=== PATIENT | male | born 1945 | race Caucasian/White ===

== ENCOUNTER 2022-03-08 15:30 | Outpatient (RCR) | payer MEDICARE, SELFPAY ==
--- NOTE | 2022-01-07 15:24 | PTOPEVAL ---
PHYSICAL THERAPY INITIAL EVALUATION. Thank you for referring Antonio Meléndez to [facility].? The patient is scheduled to be seen for therapy? 2x/week for 4 weeks. Please review, sign, date and return this plan of care MAXIMO. I agree with and certify that the following plan of care is medically necessary. Referring Physician Date Attending Provider: PHYSICIAN NOT ON STAFF *PT Outpatient Evaluation Start: 01/07/22 Evaluation Information Subjective Information Pt states he is having Query Text:As Reported By Patient/ bilateral lower back pain. He Family states when he gets up in the morning he uses pain medication (Alive, ibuprofen) and Biofreeze to help him get moving. He states he likes to golf but before he does he has to put a Biofreeze patch on. His PCP gave him a muscle relaxers yesterday to trial and it gave him acid reflux at night. He also complains of hand pain for last year or so. Pt states he and his used to walk 2-3 miles most days of the week, but have been unable to do this for the last year or so. Pain Assessment Bilateral Lower Back Reported Pain Level 5 Pain Description Throbbing Pain Frequency Chronic Lowest Pain Intensity 3 Greatest Pain Intensity 8 Other Pain Aggravating Factors Progressive throughout the day Cervical and Lumbar ROM Lumbar Flexion Active Mid More Lumbar Extension (0-40) 30 Lateral Flexion can reach knee joint line Query Text:Active Hands to: bilaterally, sharp pain with first attempt at L lateral flexion Lateral Rotation Right (0-45) 45 Lateral Rotation Left (0-45) 45 Lumbar ROM 75% of Normal Normal Lumbar Segmental Motion Yes Lower Extremity Range of Motion General Lower Extremity Range of Motion WFL/Left,WFL/Right Lower Extremity Muscle Strength Testing Gross Lower Extremity Strength B LE grossly 5/5 Posture Standing Position Posture Evaluation View Posterior Thoracic Spine Posture Flattened Lumbar Spine Posture Rotation Right,Increased Lordosis Palpation Assessment Palpation Tender to palpation a B paraspinal Balance Assessment 5 Time Sit to Stand Time in Seconds
--- NOTE | 2022-02-03 13:18 | PTOPEVAL ---
PHYSICAL THERAPY PROGRESS REPORT. Thank you for referring Antonio Meléndez to [facility].? The patient is scheduled to continue for therapy?2x/week for 4 weeks. Please review, sign, date and return this plan of care MAXIMO. I agree with and certify that the following plan of care is medically necessary. Referring Physician Date Attending Provider: PHYSICIAN NOT ON STAFF Evaluation Information Diagnosis low back pain Subjective Information Pt states his back pain is Query Text:As Reported By Patient/ starting to improve. He is Family experiencing less pain and his mobility has improved a little bit. He states he has not attempted to golf yet and is a little apprehensive about that. Pain Assessment Self Report Pain Assessment Bilateral Lower Back Reported Pain Level 3 Greatest Pain Intensity 6 Cervical and Lumbar ROM Lumbar Flexion Active Ankle Lumbar Extension (0-40) 30 Lateral Flexion can reach knee joint line Query Text:Active Hands to: bilaterally, achy pain with B lateral flexion Lateral Rotation Right (0-45) 45 Lateral Rotation Left (0-45) 45 Lumbar ROM 75% of Normal Normal Lumbar Segmental Motion Yes Balance Assessment Time Up Go (TUG) Timed Up and Go Test (TUG) (Seconds) 10 5 Time Sit to Stand Time in Seconds 13 5 Time Sit to Stand Comments Initially: 22s without the use Query Text:Normative Data: If Greater of UEs Than 15 Seconds, 74% Increase Risk for Recurrent Falls Gait Assessment Gait Pattern No Deviations/Normal Other Gait Observations Decreased trunk rotation, increased pelvic rotation. Equal step length and stride length 2 Minute Walk Total Distance Walked (feet) 440 2 Minute Walk Gait Speed Score (feet/ 3.66 second) 2 Minute Walk Test Comments No increase in back pain PT Clinical Summary Antonio presents to therapy today for his progress report following 8 sessions of therapy to treat his chronic low back pain. He has improved his lumbar mobility, LE strength, and functional mobility. He reports decreases in pain reports compared to the initial visit. He continues to demonstrate
--- NOTE | 2022-03-08 16:33 | PCPTNOTE ---
Attending Provider: PHYSICIAN NOT ON STAFF Patient:Antonio Meléndez Date of :1945 Pt states he has been doing well in the last month since his visit. He has been doing his exercises almost daily. He was able to golf 17 holes before his back pain started. He reports he has started to do some walking for exercise but his knee is a limiting factor in this. Vince is progress well with his HEP. He reports no functional limitations at this time. He is to be discharged from skilled physical therapy services at this time with instructions to follow up with his referring provider if any new symptoms occur. Patient?s initial visit was on 01/07/2022 14:15 and he had a total of 10 visits. The goals have been met. Thank you for referring this patient to [facility]. Please review, sign, date and return this discharge summary MAXIMO. I have been updated about the patient's current status and I agree with discharge from the above service at this time. Referring Physician Date
== END 2022-03-10 08:42 | disposition home or self-care (01) ==
LOC: ANHPT 15:30
DX: M54.50 Low back pain, unspecified (principal); G89.29 Other chronic pain
CPT/HCPCS: 97014; 97110; 97112; 97140; 97161; 97530; G0283

== ENCOUNTER 2025-06-20 08:15 | Outpatient (CLI) | payer MEDICARE, SELFPAY ==
--- NOTE | 2025-06-20 08:18 | ECG_ITS ---
Test Date: 2025-06-20 08:25:56 Measurements Intervals [place] Rate: 81 P: 60 DE: 287 QRS: -14 QRSD: 84 T: 2 QT: 330 QTc: 385 Interpretive Statements SINUS RHYTHM WITH FIRST DEGREE AV BLOCK LEFT VENTRICULAR HYPERTROPHY WITH ST-T CHANGE CANNOT R/O SEPTAL INFARCT, AGE INDETERMINATE BORDERLINE T WAVE ABNORMALITY- INFERIOR LEADS BASELINE ARTIFACT- I, II, III, AVR, AVL, AVF, V1-V6 ABNORMAL ECG No previous ECG available for comparison Electronically Signed On 06-20-2025 08:41:16 CDT by Rayo Conn D.O.
--- OUTSIDE RECORDS SUMMARY | 2025-06-20 08:21 | XMS_ITS | Clinical Summary ---
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 Gender Identity Not on file Sexual Orientation Not on file Last Filed Vital Signs Vital Sign Reading Time Taken Comments Blood Pressure 153/89 08/17/2022 7:00 PM CDT Pulse 75 08/17/2022 7:00 PM CDT Temperature 36.6 C (97.9 F) 08/17/2022 12:28 PM CDT Respiratory Rate 18 08/17/2022 7:00 PM CDT Oxygen Saturation 96% 08/17/2022 7:00 PM CDT Inhaled Oxygen Concentration - - Weight 114.9 kg (253 lb 4.9 oz) 022 12:28 PM CDT Height 170.2 cm (5' 7) 08/17/2022 12:2 8 PM CDT Body Mass Index 39.67 08/17/2022 12:28 PM CDT Plan of Treatment Health Maintenance Due Date Last Done Comments Annual Medicare Wellness Visit 2008 Zoster Vaccines (2 of 3) 12/02/2011 10/07/2011 Pneumococcal Vaccine: 50+ Years (2 of 2 - PCV) 04/07/2016 04/07/2015 RSV Immunization or 60+ Years (1 - 1-dose 75+ series) 2018 COVID-19 Vaccine (2023- season) 2024 08/11/2022, 02/07/2022, 09/02/2021, Additional history exists PHQ-2 (Physician [place]) 11/07/2024 DTaP, Tdap and Td Vaccines (2 - Td or Tdap) 04/24/2028 04/24/2018 Meningococcal B Vaccine Aged Out No l onger eligible based on patient's age to complete this topic Meningococcal Vaccine Aged Out No torito reji eligible based on patient's age to complete this topic RSV Immunizations Under 20 Months Aged Out No longer eligible based on patient's age to complete this topic Insurance A[employer] Care Teams Configuration Management Specialist Relationship Specialty Start Date End Date Art Petty MD [address] [place] [address] DR [address] [address] PCP - General INTERNAL MEDICINE 08/17/22
== END 2025-06-20 08:16 | disposition home or self-care (01) ==
PROVIDERS: Visit Provider Anesthesiology Pain Medicine
DX: E78.5 Hyperlipidemia, unspecified (principal); I10 Essential (primary) hypertension; I44.0 Atrioventricular block, first degree
CPT/HCPCS: 93005

== ENCOUNTER 2025-07-02 01:24 | Day surgery (SDC) | payer MEDICARE, SELFPAY ==
[2025-06-17 15:36] VITALS: BMI 36.6
--- NOTE | 2025-06-17 15:52 | PC.NURSE ---
Report to the Outpatient Waiting Room, entrance under the green pavilion located off [facility], at time ___0830am____ on date __07/02/25 . Planned Procedure Time: __10:30am .? Time changes happen often and if your time is changed the preop area will call you the afternoon before. - You and your visitor will be asked to self-screen and do not enter if you have any COVID symptoms. Please call surgeon if you need to reschedule. - A mask is optional within the hospital at this time. Patients may have No food or drink from midnight until time of surgery and no smoking, or chewing tobacco (or any form of nicotine). No chewing gum, candy or mints. Take only the following medications with a SIP of water on the morning of surgery: Amlodipine and Tylenol DO NOT STOP ANY OF YOUR OTHER PRESCRIPTION MEDICATIONS PRIOR TO SURGERY EXCEPT THE FOLLOWING Hold all vitamins and supplements for 3 days per anesthesiologist. Date of last dose is 06/28/25 Medications to discontinue per physician Thom will notify pt if Aspirin needs stopped Date to take last dose they will notify pt of Aspirin instructions Please no make-up, nail irish, hairspray, perfume, deodorant, or body powder the day of surgery.? No jewelry (including any body piercings) or valuables the day of surgery, leave them at home.? Please take a shower or bath the night before and the morning of surgery with an antibacterial soap.( Yellow Dial )?and HIBICLEANSE since you have it. Wear comfortable, loose fitting clothing.? - Jewelry must be removed prior to entering the operating room.? Rings and piercings that are not removed may be cut off. - The hospital will not accept responsibility for valuables.? - Please leave all valuables, including medications, at home the day of surgery. If you are going home after surgery, a licensed haulpak driver must drive you home.? - NO public transportation without another adult if you receive anesthesia. - We recommend that an adult stay with you for 24 hours following discharge. - We also recommend that you do not drive, make important decision, drink alcoholic beverages, or take any drugs that were not prescribed by your health care provider for at least 24 hours after your discharge time. Follow any additional instructions given to you from your surgeon. Telephone instructions given to ___Patient and asked if any additional questions and then verbalized understanding. Patient advised to call surgeon office or pre surgery nurse liaison [phone] if any additional questions.
[2025-07-02] VITALS (9 sets, daily range): BP systolic 113–146; BP diastolic 60–84; PULSE 68–88; RESP 16–18; TEMP 36.1–36.7; O2SAT 94–98
--- NOTE | ~2025-07-02 | XR_ITS ---
XR fluoroscopy no charge Indication: Intrascept procedure TECHNIQUE: Fluoroscopy used during Intrascept procedure performed by [Art Garcia MD] on 07/02/2025. 3 minutes 47 seconds of fluoroscopy with 32 fluoroscopic images captured. FINDINGS: Correlate with procedure note. IMPRESSION: Fluoroscopy used during Intrascept procedure. Reviewed, dictated and finalized at location O.
--- OUTSIDE RECORDS SUMMARY | 2025-07-02 01:27 | XMS_ITS | Encounter Summary ---
Author Organization [facility] Address [address] [place] [address] Care Team Providers Care Power Line Installer And Repairer Name Role Phone Art Petty MD Primary Care Provider [phone] Reason for Visit * Reason Onset Date Comments fyi 09/26/2023 Encounter Details Date Type Department Care Team (Late st Contact Info) Description 09/26/2023 Telephone [facility] [address] [facility] [address] [place], [place] [id number] Bennett Conroy MD PhD [address] [place] [address] fyi Social History Tobacco Use Types Packs/Day Years Used Date Smoking Tobacco: Former Cigarettes Q uit: 07/02/1981 Smokeless Tobacco: Never Alcohol Use Standard Drinks/Week Comments Yes 0 (1 standard drink = 0.6 oz pur e alcohol) social AUDIT-C Answer Date Recorded Q1: How often do you have a drink containing alc ohol? 2-3 times a week 09/26/2023 Q2: How many drinks containi ng alcohol do you have on a typical day when you are drinking? 1 or 2 09/26/2023 Q3: How often do you have si x or more drinks on one occasion? Never 09/26/2023 PHQ-2 Answer Date Recorded PHQ-2 Total Score (If total score is 3 or more points, staff should administer the PHQ-9) 0 05/28/2023 Hunger Vital Sign Answer Date Recorded Within the past 12 months, y ou worried that your food would run out before you got the money to buy more. Never true 09/26/20 23 Within the past 12 months, t he food you bought just didn't last and you didn't have money to get more. 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 2-3 times a week 09/26/2023 10:58 AM Debra Laughlin RN Q2: How many drinks containing alcohol do you have on a typical day when you are drinking? 1 or 2 09/26/2023 10:58 AM Debra Laughlin RN Q3: How often do you have six or more drinks on one occasion? Never 09/26/2023 10:58 AM Debra Laughlin RN documented as of this encounter Plan of Treatment Not on file documented as of this encounter Goals Goal Patient Goal Type Associated Problems Recent Progress Patient-Stated? Author CCM Chronic Pain Care Plan Chronic Care Management No change(02/08 9:06 AM CDT) Ila Ibarra, VICKY Note: Problem: Chronic Pain Goals: 1. Minimize further functional decline 2. Maximize quality of life 3. Control pain Strategies: - Activity/exercise program recommendation - Conservative stepwise pain medicine strategy with multi-disciplinary approach - Recommend healthy lifestyle strategies and compensatory methods as needed documented as of this encounter Visit Diagnoses Not on filedocumented in this encounter Care Teams Power Line Installer And Repairer Relationship Specialty Start Date End Date Art Petty MD [address] [place] [address] [address] [address] PCP - General 03/08/17 documented as of this encounter
--- OUTSIDE RECORDS SUMMARY | 2025-07-02 01:27 | XMS_ITS | Clinical Summary ---
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
--- OUTSIDE RECORDS SUMMARY | 2025-07-02 01:27 | XMS_ITS | Clinical Summary ---
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 2006 Active LUMIGAN 0.01 % ophthalmic drops INSTILL 1 DROP IN OU QPM UTD 6 2017 Active AZOPT 1 % ophthalmic suspension 6 2017 Active omega 0-owc-hus-fish oil 300-1,000 mg capsule 2007 Active cholecalciferol (VITAMIN D-3) 25 mcg (1,000 unit) tablet Take 1 tablet (1,000 Units total) by mouth daily Active famotidine (PEPCID) 40 mg tablet Take 1 tablet (40 mg total) by mouth daily as needed for heartburn Active carboxymethylcellulose (REFRESH TEARS) 0.5 % ophthalmic solution Administer 1 drop into both eyes as needed Active miconazole 2 % powder Apply topically as needed for itching Active Nystop powder APPLY TO GROIN THREE TIMES DAILY 2020 Active desonide (DESOWEN) 0.05 % ointment APPLY TO FOLDS TWICE DAILY 2020 Active ibuprofen (ADVIL,MOTRIN) 200 mg tab/cap Take 1 tablet/capsul e (200 mg total) by mouth every 6 (six) hours as needed for pain Active menthol 4 % gel Apply topically Active sodium, potassium & mag sulfates (SUPREP BOWEL KIT) 17.5-3.13-1.6 gram recon solnIndications:Bowel Evacuation Drink 1 bottle at 6pm the night before procedure. Drink 2nd bottle 4 hours prior to leaving home. 354 mL 2021 Active tobramycin-dexAMETHaso ne (TOBRADEX) ophthalmic solution SHAKE LIQUID AND INSTILL 1 DROP IN LEFT EYE FOUR TIMES DAILY FOR 10 TO 14 DAYS 2023 Active mometasone (ELOCON) 0.1 % cream Apply to both ears bilaterally. 50 g 3 2023 Active dorzolamide (TRUSOPT) 2 % ophthalmic solution 1 drop 2 (two) times a day 2023 Active tadalafiL (CIALIS) 20 mg tablet Take 1 tablet (20 mg total) by mouth daily as needed for erectile dysfunction 30 tablet 3 2023 Active atorvastatin (LIPITOR) 20 mg tabletIndications:Pure hypercholesterolemia TAKE 1 TABLET(20 MG) BY MOUTH DAILY 90 tablet 3 2023 Active losartan (COZAAR) 100 mg tabletIndications:Prim kim hypertension TAKE 1 TABLET BY MOUTH DAILY 90 tablet 3 2023 Active sodium, potassium & mag sulfates (Suprep Bowel Prep Kit) 17.5-3.13-1.6 gram recon solnIndications:Bowel Evacuation Drink first half of prep at 6:00 pm the night before procedure. Drink second half of prep 4 hours prior to leaving home for procedure. 354 mL 2024 Active amLODIPine (NORVASC) 5 mg tabletIndications:Prim kim hypertension TAKE 1 TABLET(5 MG) BY MOUTH DAILY 90 tablet 3 2024 Active diclofenac sodium (VOLTAREN) 1 % gel Apply topically 06/12 Discontinued benzonatate (TESSALON) 100 mg capsuleIndications:Cou gh Take 1 capsule (100 mg total) by mouth 3 (three) times a day as needed for cough 42 capsule 06/12 Discontinued baclofen (LIORESAL) 5 mg tabletIndications:Musc le Spasticity of Spinal Origin Take 1 tablet (5 mg total) by mouth 3 (three) times a day 90 tablet 06/12 Discontinued sildenafiL (VIAGRA) 100 mg tablet Take 1 tablet (100 mg total) by mouth as needed for erectile dysfunction 10 tablet 3 06/21 Active Problems Problem Noted Date Diagnosed Date Preop exam for internal medicine 02/07/2025 Assessment & Plan (02/07/2025 2:27 PM CDT): After review of PMHx (w/o psychogenic disorders or treatment for mental dx historically), physical & psychological exam today -Pt is of sound mind to undergo pending interest of procedure with pain mgnt Pt declined any recreational drug use, unchanged mild ETOH use (1 drink/ week) Medically cleared from surgery per Internal Medicine standpoint Will forward medical clearance to pain mgnt specialist for awareness towards proceeding with surgical procedure History of colon polyps 12/05/2024 Vertebrogenic low back pain 11/24/2023 Assessment & Plan (02/07/2025 1:17 PM CDT): Chronic, refractory thoracolumbar back pain; pain mgmt recommending minimally invasive mgmt w/ intracept procedure Preop medical clearance provided w/ OV note/ PPW reflecting clearance to surgeon as requested Radicular pain of thoracic region 09/26/2023 Lumbar radiculopathy 08/25/2023 Screening for malignant neoplasm 04/27/2022 Overview (04/27/2022): Added automatically from request for surgery [id number] Cough 07/29/2017 Vitamin D deficiency 05/04/2017 Knee pain 10/09/2012 Benign colonic polyp 10/05/2011 Hyperlipidemia 10/05/2011 Hypertension 10/05/2011 Osteoarthritis 10/05/2011 Osteoarthritis of knee 08/13/2011 Encounters Date Type Department Care Team Description 06/24/2025 Telephone [facility] Medicine Surgery [address] [facility] 2nd Floor [address] [place] [address] Devora Davis, RMA Patient issue/concern 06/19/2025 Telephone [place] [id number] [place] [address] Art Petty MD Surgical Clearance (Dr. Garcia - [facility] Pain Management) 06/13/2025 Telephone [facility] Surgery [address] [place] [address] Medical Office Building [address] [place] [phone] Elizabeth Armendariz RN 06/12/2025 11:20 AM CDT Lab [facility] at the [address] [phone] Benign prostatic hyperplasia with lower urinary tract symptoms, symptom details unspecified; Hypertension, essential; Vitamin D deficiency; Screening cholesterol level; Screening, anemia, deficiency, iron 06/12/2025 10:00 AM CDT Office Visit [address] [address] Art Petty MD Hypertension, essential (Primary Dx); Benign prostatic hyperplasia with lower urinary tract symptoms, symptom details unspecified; History of kidney stones; Chronic bilateral low back pain with sciatica, sciatica laterality unspecified; Vitamin D deficiency; Other male erectile dysfunction; Adenomatous polyp of ascending colon; Screening, anemia, deficiency, iron; Screening cholesterol level 06/12/2025 Orders Only [address] [phone] Art Petty MD Routine general medical examination at a health care facility (Primary Dx) 06/06/2025 10:35 AM CDT Anesthesia Event [facility] Endoscopy at [address] [phone] Fabrice Cavanaugh MD Lyerla, Christina M., CRNA 06/06/2025 10:32 AM CDT - 06/06/2025 11:17 AM CDT Surgery [facility] Endoscopy at [address] [address] Jerry Prakash MD COLON REMOVAL SNARE 06/06/2025 8:59 AM CDT - 06/06/2025 11:55 AM CDT Hospital Encounter [facility] Endoscopy at [facility] [address] [place] [address] Jerry Prakash MD History of colon polyps Discharge Disposition: Discharge to home or self care 06/05/2025 Documentation [facility] Surgery [address] [facility] Medical Office Building [address] [place] [phone] Elizabeth Armendariz, VICKY 05/30/2025 [facility] [address] [facility] Floor 5 [place] [phone] Elise Cedillo BPhyliciaA. confirm colonoscopy 05/30/2025 Telephone [facility] Surgery [address] [facility] 2nd Floor [address] [place] [address] Radha Pagan, RMA Colonoscopy 05/15/2025 [facility] [address] [facility] 2nd Floor [address] [place] [address] Devora Davis, RMA 04/22/2025 Orders Only [address] [place] [phone] Art Petty MD from Last 3 Months Immunizations Immunization Administration Dates Next Due COVID-19 mRNA (Limonetik) 0.3 m L (30 mcg) vaccine (12 years and up) 09/07/2023 Influenza, Quad, Adjuvantate d, Intramuscular 07/06/2019 Influenza, Quadrivalent, Hig h Dose, Preservative Free, Intrr 06/23/2022,06/22/2021,07/13/2020 Influenza, Trivalent, Adjuva nted, Intramuscular 07/06/2019 Influenza, Trivalent, High D ose, Split, Preservative Free, Intramuscular 06/29/2023,06/22/2021,07/05/2018,07/12,07/21/2016,07/15/2015,07/29/2014 Influenza, Trivalent, Preser vative Free, Intramuscular 07/20/2012 Influenza, Unspecified 06/24/2022,07/06/2019 Moderna SARS-CoV-2 Monovalen t Vaccination (12+ YRS) 09/02/2021,01/20/2021,12/19/2020,12/18 Moderna Sars-cov-2 Bivalent Vaccine 50 Mcg/0.5 mL (12+ YRS)-Blue/Morales 08/07/2022 Pneumococcal Conjugate Pcv20 06/09/2023 Pneumococcal Polysaccharide PPV23 04/07/2015 Tdap 04/24/2018 ZOSTER LIVE 10/07/2011 ZOSTER Recombinant 10/06/2023,07/20/2023 Surgical History Surgery Date Site/Laterality Comments FL CYSTO W/URETEROSCOPY W/LITHOTRIPSY Cystoscopy With Ureteroscopy With Lithotripsy - (Added by TW Conv) MOHS SURGERY MENISCUS SURGERY HEMORRHOID SURGERY COLONOSCOPY 11/07/2013 - 11/06/2014 POLYPECTOMY TONSILLECTOMY CATARACT EXTRACTION Medical History Medical History Date Comments Personal history of other di seases of the circulatory system History of hypertension - (A dded by TW Conv) Personal history of other en docrine, nutritional and metabolic disease History of hyperchol esterolemia - (Added by TW Conv) High blood pressure High cholesterol Kidney stone Awareness under anesthesia Colon polyp 2013 Cancer (HCC) melanoma, squamo us, and basil History of transfusion Arthritis Cataract Glaucoma GERD (gastroesophageal reflu x disease) Low back pain Joint pain Low back pain Family History Medical History Relation Name Comments Cancer Father Vince Rika Diabetes Father Vince Rika Heart disease Father Vince Rika Arthritis Mother Pat Rika Heart disease Mother Pat Rika Mental illness Mother Pat Rika Relation Name Status Comments Father Vince Rika Mother Pat Rika Social History Tobacco Use Types Packs/Day Years Used Date Smoking Tobacco: Former Cigarettes Q uit: 07/02/1981 Smokeless Tobacco: Never Tobacco Cessation:Counseling Given: Not Answered Alcohol Use Standard Drinks/Week Comments Yes 0 (1 standard drink = 0.6 oz pur e alcohol) social AUDIT-C Answer Date Recorded Q1: How often do you have a drink containing alc ohol? 2-4 times a month 06/06/2025 Q2: How many drinks containi ng alcohol do you have on a typical day when you are drinking? 1 or 2 06/06/2025 Q3: How often do you have si x or more drinks on one occasion? Never 06/06/2025 PHQ-2 Answer Date Recorded PHQ-2 Total Score (If total score is 3 or more points, staff should administer the PHQ-9) 0 06/06/2025 Hunger Vital Sign Answer Date Recorded Within the past 12 months, y ou worried that your food would run out before you got the money to buy more. Never true 11/24/19 24 Within the past 12 months, t he food you bought just didn't last and you didn't have money to get more. Never true 11/24/2023 Personal Safety Answer Date Recorded Have you ever been in or are you currently in a harmful physical or emotional relationship or is someone making you feel afraid or unsafe? 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 Gender Identity Not on file Sexual Orientation Not on file Obstetrics History Last Filed Vital Signs Vital Sign Reading Time Taken Comments Blood Pressure 126/80 06/12/2025 9:52 AM CDT Pulse 90 06/12/2025 9:52 AM CDT Temperature 36.9 C (98.4 F) 06/12/2025 9:52 AM CDT Respiratory Rate 13 06/06/2025 11:5 0 AM CDT Oxygen Saturation 96% 06/12/2025 9:52 AM CDT Inhaled Oxygen Concentration - - Weight 104.7 kg (230 lb 12.8 oz) 06/12/2025 9:52 AM CDT Height 170.2 cm (5' 7) 06/12/2025 9:52 AM CDT Body Mass Index 36.15 06/12/2025 9:52 AM CDT Plan of Treatment Health Maintenance Due Date Last Done Comments Hepatitis B Screening 1963 Abdominal Aortic Aneurysm (A AA) Screen 2008 Covid-19 Vaccine (8 - 2023- 5 season) 2024 09/07/2023, 08/07/2022, 02/07/2022, Additional history exists Influenza Vaccine (#1) 2025 , 06/29/2023, 06/24/2022, Additional history exists Depression Screening 06/12/2026 06/12/2025, 06/04/2024, 06/01/2023, Additional history exists Fall Risk Assessment 06/12/2026 06/12/2025, 06/06/2025, 06/04/2024, Additional history exists Well Visit 65+ 06/12/2026 06/12/2025, 05/08, 06/01/2023, Additional history exists DTaP/Tdap/Td Vaccine (2 - Td or Tdap) 04/24/2028 04/24/2018 Pneumococcal vaccine 65+ Completed 06/09/2023, 11/2014 Zoster Vaccine Completed 10/06/2023, 07/08, 10/07/2011 Goals Goal Patient Goal Type Associated Problems Recent Progress Patient-Stated? Author CCM Chronic Pain Care Plan Chronic Care Management No change(02/08 9:06 AM CDT) No Ila Limon, RN Note: Problem: Chronic Pain Goals: 1. Minimize further functional decline 2. Maximize quality of life 3. Control pain Strategies: - Activity/exercise program recommendation - Conservative stepwise pain medicine strategy with multi-disciplinary approach - Recommend healthy lifestyle strategies and compensatory methods as needed Procedures Procedure Name Priority Date/Time Associated Diagnosis Comments EGFR Routine 06/12/2025 11:44 AM CDT Hypertension, essential DIFFERENTIAL AUTO Routine 06/12/2025 11: 44 AM CDT Screening, anemia, deficiency, iron CBC WITH AUTO DIFFERENTIAL Routine 06/12/2025 11:44 AM CDT Screening, anemia, deficiency, iron COMPREHENSIVE METABOLIC PANEL Routine 06/12/2025 11:44 AM CDT Hypertension, essential LIPID PANEL Routine 06/12/2025 11:44 AM CDT Screening cholesterol level VITAMIN D 25 HYDROXY Routine 06/12/2025 11:44 AM CDT Vitamin D deficiency URINALYSIS AND REFLEX TO MICROSCOPIC Routine 06/12/2025 11:44 AM CDT Hypertension, essential PSA SCREEN Routine 06/12/2025 11:44 AM CDT Benign prostatic hyperplasia with lower urinary tract symptoms, symptom details unspecified SURGICAL PATHOLOGY Routine 06/06/2025 11 :18 AM CDT History of colon polyps COLON BIOPSY 06/06/2025 10:36 AM CDT History of colon polyps COLON REMOVAL SNARE 06/06/2025 1 0:36 AM CDT History of colon polyps COLONOSCOPY 06/06/2025 10:29 AM CDT from Last 3 Months Results * (ABNORMAL) eGFR (06/12/2025 11:44 AM CDT) eGFR 51(L) >=60 mL/min/1. 73 m2 Comment: Interpretive Data Reference Interval Normal >/= 90 mL/min/1.73m2 Mildly decreased* 60 - 89 mL/min/1.73m2 Mildly to moderately decreased 45 - 59 mL/min/1.73m2 Moderately to severely decreased 30 - 44 mL/min/1.73m2 Severely decreased 15 - 29 mL/min/1.73m2 Kidney Failure < 15 mL/min/1.73m2 *Relative to young adult level Estimated glomerular filtration rate is determined by the 2020 CKD-EPI equation recommended by the National Kidney Foundation (A Unifying Approach to GFR Estimation: Recommendations of the NKF-ASK Task Force on Reassessing the Inclusion of Race in Diagnosing Kidney Disease, JASN 2020). The CKD-EPI equation should not be used for patients with unstable renal function and has not been validated in children and those over 70. Current interpretive data was last reviewed 2021. Blood 06/12/2025 11:4 4 AM CDT 06/12/2025 1:32 PM CDT us Art Petty MD LAB BLOOD ORDERABLES Final R esult [facility] Department [place] [address] * (ABNORMAL) Differential, auto (06/12/2025 11:44 AM CDT) Neutrophil abs 3.13 1.50 - 6.50 K/cumm Imm gran abs 0.04 0.00 - 0.10 K/cumm [facility] Lymphocyte abs 1.20 0.80 - 3.30 K/cumm [facility] Monocyte abs 0.83(H) 0.20 - 0.80 K/cumm [facility] Eosinophil abs 0.03 0.00 - 0.50 K/cumm [facility] Basophil abs 0.03 0.00 - 0.10 K/cumm [facility] Neutrophil pct 59.4 % [facility] Comment: Interpretive Data Percent cell count reference ranges are not reported, since discordance with absolute values may lead to misinterpretation of CBC data. Current Interpretive Data was last revised on 2018. Imm gran pct 0.8 % [facility] Comment: Interpretive Data Percent cell count reference ranges are not reported, since discordance with absolute values may lead to misinterpretation of CBC data. Current Interpretive Data was last revised on 2018. Lymphocyte pct 22.8 % [facility] Comment: Interpretive Data Percent cell count reference ranges are not reported, since discordance with absolute values may lead to misinterpretation of CBC data. Current Interpretive Data was last revised on 2018. Monocyte pct 15.8 % [facility] Comment: Interpretive Data Percent cell count reference ranges are not reported, since discordance with absolute values may lead to misinterpretation of CBC data. Current Interpretive Data was last revised on 2018. Eosinophil pct 0.6 % [facility] Comment: Interpretive Data Percent cell count reference ranges are not reported, since discordance with absolute values may lead to misinterpretation of CBC data. Current Interpretive Data was last revised on 2018. Basophil pct 0.6 % [facility] Comment: Interpretive Data Percent cell count reference ranges are not reported, since discordance with absolute values may lead to misinterpretation of CBC data. Current Interpretive Data was last revised on 2018. Blood 06/12/2025 11:4 4 AM CDT 06/12/2025 1:26 PM CDT Art Petty MD LAB BLOOD ORDERABLES Final R esult Performing Organization Address [facility] Co de Phone [place] [address] * PSA screen (06/12/2025 11:44 AM CDT) PSA-Total 0.84 <=6.20 ng/mL Comment: Interpretive Data AGE SEX REFERENCE INTERVAL 0 minutes-150 years Female None 0 minutes-49 years Male None 50-59 years Male 0-3.90 60-69 years Male 0-5.40 70-79 years Male 0-6.20 80-150 years Male 0-6.20 The Pelon PSA Total assay procedure was used. Results from different manufacturers or methods may not be comparable. Serial testing should be performed using the same method. Current interpretive data last revised 22. Blood 06/12/2025 11:4 4 AM CDT 06/12/2025 1:26 PM CDT Art Petty MD LAB BLOOD ORDERABLES Final R esult Performing Organization Address [facility] de Phone Number [facility] One [facility] [employer] [place] [address] * Urinalysis reflex to microscopic (06/12/2025 11:44 AM CDT) Color, ur Yellow Yellow Clarity, ur Clear Clear [facility] Specific gravity, ur 1.023 1.003 - 1.030 [facility] pH, urine 5.5 [facility] Comment: Interpretive Data U rine pH is affected by diet, medications, systemic acid-base disturbances, and renal tubular function. pH may affect urinary stone formation. For example, urine pH below 6.0 may help reduce the tendency for calcium phosphate stones and pH greater than 6.0 may reduce the tendency for uric acid stone formation. Source: [facility] [employer] Current Interpretive Data was last revised on 2017 Protein, ur ql Negative Negative [facility] Glucose, ur ql Negative Negative [facility] Ketones[facility] ur Negative Negative [facility] Bilirubin, ur Negative Negative [facility] Blood, ur Negative Negative [facility] Urobilinogen, ur <2.0 <2.0 mg/dL [facility] Nitrite, ur Negative Negative [facility] Leukocyte esterase, ur Negative Negative [facility] UA reflex comment Reflex conditions for microscopic UA not met. [facility] Urine 06/12/2025 11:4 4 AM CDT 06/12/2025 1:25 PM CDT us Art Petty MD LAB URINE ORDERABLES Final R esult Performing Organization Address [facility] Co de Phone Number [facility] Department [place] [address] * (ABNORMAL) CBC with auto differential (06/12/2025 11:44 AM CDT) WBC 5.26 3.80 - 9.90 K/cumm Hgb 13.6 13.0 - 17.5 g/dL [facility] Hct 41.6 38.9 - 50.3 % [facility] Plt 150 150 - 400 K/cumm [facility] MPV 11.4 9.1 - 12.3 fL [facility] RBC 4.21(L) 4.30 - 5.80 M/cumm [facility] MCV 98.8(H) 81.3 - 96.4 fL [facility] MCH 32.3 27.1 - 33.3 pg [facility] MCHC 32.7 32.3 - 35.7 g/dL [facility] RDW CV 13.7 11.1 - 14.9 % [facility] RDW SD 49.9(H) 35.7 - 48.1 fL [facility] NRBC abs 0.00 0.00 - 0.01 K/cumm [facility] Blood 06/12/2025 11:4 4 AM CDT 06/12/2025 1:26 PM CDT us Art Petty MD LAB BLOOD ORDERABLES Final R esult Performing Organization Address [facility] Co de Phone Number [facility] [place] [address] * Vitamin D 25 hydroxy (06/12/2025 11:44 AM CDT) Vitamin D 25-OH 35 30 - 80 ng/mL Blood 06/12/2025 11:4 4 AM CDT 06/12/2025 1:26 PM CDT Art Petty MD LAB BLOOD ORDERABLES Final R esult [facility] Department [place] [address] * Lipid panel (06/12/2025 11:44 AM CDT) Cholesterol 142 30 - 199 mg/dL Comment: Interpretive Data Ages < or = 19 years Acceptable: <170 mg/dL Borderline high: 170-199 mg/dL High: >or= 200 mg/dL Ages > or = 20 years Desirable: <200 mg/dL Borderline high: 200-239 mg/dL High: >or= 240 mg/dL Literature References: 1. Expert Panel on Integrated Guidelines for Cardiovascular Health and Risk Reduction in Children and Adolescents. Pediatrics 2011;128:S213 2. NCEP Expert Panel. Circulation 2004;110:227 Current Interpretive Data was last revised on 2018. Triglycerides 87 <=149 mg/dL [facility] Comment: Interpretive Data Ages < or = 9 years Acceptable: <75 mg/dL Borderline high: 75-99 mg/dL High: >or= 100 mg/dL Ages 10 to 20 years Acceptable: <90 mg/dL Borderline high: 90-129 mg/dL High: >or= 130 mg/dL Ages > or = 20 years Desirable: <150 mg/dL Borderline high: 150-199 mg/dL High: 200-499 mg/dL Very high: >or= 499 mg/dL Literature References: 1. Expert Panel on Integrated Guidelines for Cardiovascular Health and Risk Reduction in Children and Adolescents. Pediatrics 2011;128:S213 2. NCEP Expert Panel. Circulation 2004;110:227 Current Interpretive Data was last revised on 2018. HDL 41 >=40 mg/dL [facility] Comment: Interpretive Data Ages < or = 19 years Acceptable: >45 mg/dL Borderline low: 40-45 mg/dL Low: <40 mg/dL Ages > or = 20 years Desirable: >or= 60 mg/dL Low: <40 mg/dL Literature References: 1. Expert Panel on Integrated Guidelines for Cardiovascular Health and Risk Reduction in Children and Adolescents. Pediatrics 2011;128:S213 2. NCEP Expert Panel. Circulation 2004;110:227 Current Interpretive Data was last revised on 2018. LDL, calculated 84 <=129 mg/dL [facility] Comment: Interpretive Data Ages < or = 19 years Acceptable: <110 mg/dL Borderline high: 110-129 mg/dL High: >or= 130 mg/dL Ages > or = 20 years Optimal: <100 mg/dL Near optimal: 100-129 mg/dL Borderline high: 130-159 mg/dL High: >160 mg/dL Calculated using the Jaquan LDL-C estimating equation. This equation was implemented on 2024. Prior to this date LDL-C was estimated using the Friedewald equation. Literature References: 1. Expert Panel on Integrated Guidelines for Cardiovascular Health and Risk Reduction in Children and Adolescents. Pediatrics 2011;128:S213 2. NCEP Expert Panel. Circulation 2004;110:227 3. Jaquan Merchant et al. TAD Cardiol. 2020 March 07;5(5):540-548. doi: 10.1001/jamacardio.2020.0013 Current Interpretive Data was last revised on 2024. Non-HDL Cholesterol 101 mg/dL [facility] Comment: Interpretive Data Ages < or = 19 years Acceptable: <120 mg/dL Borderline high: 120-144 mg/dL High: >145 mg/dL Ages > or = 20 years When triglycerides are >200 mg/dL, Non-HDL cholesterol is a secondary target of therapy with treatment goals that are 30 mg/dL greater than the LDL cholesterol target. Literature References: 1. Expert Panel on Integrated Guidelines for Cardiovascular Health and Risk Reduction in Children and Adolescents. Pediatrics 2011;128:S213 2. NCEP Expert Panel. Circulation 2004;110:227 Current Interpretive Data was last revised on 2018. Chol/HDL ratio 3 [facility] Blood 06/12/2025 11:4 4 AM CDT 06/12/2025 1:26 PM CDT Art Petty MD LAB BLOOD ORDERABLES Final R esult [facility] Department [place] [address] * (ABNORMAL) Comprehensive metabolic panel (06/12/2025 11:44 AM CDT) Sodium 145 135 - 145 mmol/L Potassium, pl 5.3(H) 3.3 - 4.9 mmol/L [facility] Chloride 111(H) 97 - 110 mmol/L [facility] CO2 27 22 - 32 mmol/L [facility] Anion gap 7 2 - 15 mmol/L [facility] BUN 21 6 - 25 mg/dL [facility] Creatinine 1.39(H) 0.80 - 1.30 mg/dL [facility] Glucose 86 70 - 199 mg/dL [facility] Comment: Interpretive Data Fasting glucose >/= 126 mg/dl is diagnostic for diabetes. Fasting is defined as no caloric intake for at least 8 hours. Fasting glucose between 100 mg/dl to 125 mg/dl is diagnostic of prediabetes. In a patient with classic symptoms of hyperglycemia or hyperglycemic crisis, a random glucose >/= 200 mg/dl is diagnostic for diabetes. In the absence of unequivocal hyperglycemia, results should be confirmed by repeat testing. The classification and Diagnosis of Diabetes Diabetes Care 202; 46: S19-S40. Current interpretive data was last revised 2022. Calcium 10.6(H) 8.5 - 10.3 mg/dL [facility] Bilirubin, total 0.7 0.1 - 1.2 mg/dL [facility] Protein, pl 7.5 6.5 - 8.5 g/dL [facility] Albumin 4.2 3.5 - 5.0 g/dL [facility] Alk phos 59 40 - 130 Units/L [facility] ALT 16 7 - 55 Units/L [facility] AST 23 10 - 50 Units/L [facility] Blood 06/12/2025 11:4 4 AM CDT 06/12/2025 1:26 PM CDT Art Petty MD LAB BLOOD ORDERABLES Final R esult [facility] Department [place] [address] * Surgical pathology (06/06/2025 11:18 AM CDT) Tissue (Polyp(s), colon/colorectal, esophageal, gastric) 06/06/2025 11:18 AM CDT Tissue specimen (specimen) (Polyp(s), colon/colorectal, esophageal, gastric) 06/06/2025 11:22 AM CDT Narrative PATHOLOGY [facility] - 06/09/2025 4:41 PM CDT EPIC results best viewed via link to PDF [facility] [place] [address] Note to Patients: This report may contain a detailed description of human tissue sent by a health care provider to the laboratory for pathologic evaluation. The content of this report is essential for diagnosis and may provide important critical findings. This information may be unfamiliar to patients to review without a medical professional present. It is advised that the patient review this report in the presence of a health care provider who can answer questions and explain the details. SURGICAL PATHOLOGY REPORT FINAL Patient Name: DORENE MELÉNDEZ Gender: Mayur : 1945 (Age: 79) Address: [address] [place], [place] [id number] Hospital #: [id number] Taken:06/06/2025 Received:06/06/2025 Reported: 06/09/2025 Patient Type: [facility] Service: Surgery Location: Physician(s): Jerry G. Mutch, M.D. Art Bulmaro Petty, M.D. Diagnosis: A. Large intestine, descending colon, polyp, biopsy - Tubular adenoma B. Large intestine, transverse colon, polyp, biopsy - Tubular adenoma ud/06/07/2025 12:51 By this signature, I attest that the above diagnosis is based upon my personal examination of the slides(and/or other material indicated in the diagnosis). Corine Barclay M.D., Ph.D. Report Electronically Reviewed and Signed Out By Corine Barclay M.D., Ph.D. 06/09/2025 16:41:40 Microscopic Description and Comment: Microscopic examination substantiates the above cited diagnosis. Shanique Baumann M.D. History: The patient is an 79-year-old man presenting with a history of colon polyps. Operative procedure: Colonoscopy and colon removal snare with biopsy. Specimen(s) Received: A: Descending colon polyp B: Transverse colon polyp snare Gross Description: Received in two formalin jars labeled with the patient's identifiers. A. Labeled descending colon polyp and consists of a single cardona fragment of soft tissue measuring 0.4 cm in greatest dimension. Labeled A1. Jar 0. B. Labeled transverse colon polyp and consists of two cardona-pink fragment(s) of soft tissue measuring 0.4 cm each in greatest dimension. Also included are multiple fragments of vegetable and fecal material. Labeled B1. Jar 0. sxst/06/06/2025 16:17 PA(s): Parris Nick By this signature, I attest that the above diagnosis is based upon my personal examination of the slides(and/or other material). Addenda/Procedures The performance characteristics of some immunohistochemical stains, fluorescence in-situ hybridization tests and immunophenotyping by flow cytometry cited in this report (if any) were determined by the Surgical Pathology and Flow Cytometry Departments at [facility] as part of an ongoing quality control associate program and in compliance with federally mandated regulations drawn from the Clinical Laboratory Improvement Act of 1988 (CLIA '88). Some of these tests rely on the use of analyte specific reagents and are subject to specific labeling requirements by the US Food and Drug Administration. Such diagnostic tests may only be performed in a facility that is certified by the Department of Health and Human Services as a high complexity laboratory under CLIA '88. The FDA has determined that such clearance or approval is not necessary. This test is used for clinical purposes. It should not be regarded as investigational or for research. Nevertheless, federal rules concerning the medical use of analyte specific reagents require that the following disclaimer be attached to the report: This test was developed and its performance characteristics determined by the Surgical Pathology and Flow Cytometry Departments of [facility]. It has not been cleared or approved by the U. S. Food and Drug Administration. IMAGES AND SCANNED DOCUMENTS, IF INCLUDED, ONLY VIEWABLE IN PDF VERSION OF REPORT us Jerry Prakash MD LAB PATHOLOGY ORDERABLES Fin al Result PATHOLOGY [facility] 3rd Floor [place], [place] [phone] * Colonoscopy (06/06/2025 10:29 AM CDT) Anatomical Region Laterality Modality Other Narrative Procedure Note Jerry Prakash MD - 06/06/2025 10:29 AM CDT [facility] Patient Name: Dorene Meléndez Procedure Date: 06/06/2025 10:29 AM Date of : 1945 Admit Type: Outpatient Age: 79 Gender: Male Attending MD: Jerry Prakash M.D., Room: [facility] ENDOSCOPY ROOM 02 Note Status: Finalized Procedure: Colonoscopy Indications: High risk colon cancer surveillance: Personalhistory of colonic polyps, Last colonoscopy: 2021 Referring MD: Art Petty M.D. Providers: Jerry Prakash M.D. Medicines: Propofol per Anesthesia Complications: No immediate complications. Estimated blood loss: Minimal. Estimated Blood Loss: Estimated blood loss was minimal. Procedure: Pre-Anesthesia Assessment: - Immediately prior to administration ofmedications, the patient was re-assessed for adequacy to receive sedatives. - Sedation was administered by an anesthesia professional. General anesthesia was attained. - The heart rate, respiratory rate, oxygen saturations, blood pressure, adequacy of pulmonary ventilation, and response to care were monitored throughout the procedure. - The physical status of the patient wasre-assessed after the procedure. The benefits, risks and alternatives of theprocedure and sedation were discussed and informed consentwas obtained. All questions were answered. Please referto the signed informed consent document in the medical record. The scope was passed under direct vision.The [id number] was introduced through the anusand advanced to the the cecum, identified byappendiceal orifice and ileocecal valve. The colonoscopy was performed with ease. The patient tolerated the procedure well. The quality of the bowelpreparation was excellent. The quality of the bowel preparation was evaluated using the BBPS ([place] BowelPreparation Scale) with scores of: Right Colon = 3, Transverse Colon = 3 and Left Colon = 3 (entire mucosa seenwell with no residual staining, small fragments of stoolor opaque liquid). The total BBPS score equals 9. The bowel preparation used was SUPREP via split dose instruction. Findings: A 3 mm polyp was found in the descending colon. The polyp was removed with a cold biopsy forceps. Resection and retrieval were complete. Estimated blood loss was minimal. A 10 mm polyp was found in the transverse colon. The polyp wasremoved with a cold snare. Resection and retrieval were complete. Estimated blood loss was minimal. Impression: - One 3 mm polyp in the descending colon, removedwith a cold biopsy forceps. Resected and retrieved. - One 10 mm polyp in the transverse colon, removed with a cold snare. Resected and retrieved. Recommendation: - Await pathology results. - Repeat colonoscopy in 5 years for surveillance. Attending Participation: I personally performed the entire procedure. Electronically signed by Dr.Matthew Dwain M.D. Jerry Prakash M.D. 06/06/2025 11:26:09 AM . Number of Addenda: 0 Note Initiated On: 06/06/2025 10:29 AM Recognized by the [employer] for promoting quality in endoscopy Jerry Prakash MD ENDOSCOPY PROCEDURES Final R esult from Last 3 Months Insurance [place] MED[place] P[place] MED[place] PPO [facility] MEDICARE ADVANTAGE [facility] MEDICARE [employer] MEDICARE PPO Advance Directives For more information, please contact: [phone] * Full Code (Latest Code Status on File) Date Activated Date Inactivated Comments 06/06/2025 9:29 AM 06/06/2025 3:55 PM * Full Code Date Activated Date Inactivated Comments 06/03/2022 7:04 AM 06/03/2022 1:30 PM * Full Code Date Activated Date Inactivated Comments 07/02/2019 9:55 AM 07/02/2019 4:34 PM 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
--- NOTE | 2025-07-02 08:53 | WPDANESEPPF ---
Anes - Initial Pre Proc Eval Procedure: Operation Date: 07/02/25 10:30 Proposed Procedures p Intracept Procedure at L3, Possible L1-2 Under Fluoroscopic Guidance - Art Garcia MD Date/Time: 07/02/25 08:53 Surgeon: Art Garcia MD Pre Op Diagnosis: vertebrogenic low back pain Patient Data Age: 79 Gender: M Height: 1.7 m Weight: 105.9 kg Allergies Allergy/AdvReac Type Severity Reaction Status Date / Time oxycodone AdvReac Unknown nausea and Verified 06/17/25 15:20 sleepiness Home Medications ?Medication ?Instructions ?Recorded ?Confirmed ?Type amlodipine 5 mg tablet 5 mg PO DAILY 07/06/23 06/17/25 History aspirin 81 mg capsule 81 mg PO DAILY 07/06/23 06/17/25 History atorvastatin 10 mg tablet 10 mg PO DAILY 07/06/23 06/17/25 History carboxymethylcellulose 0.5 1 drp EACH EYE QHS 07/06/23 06/17/25 History %-glycerin 0.9 % eye drops (Refresh Optive) cholecalciferol (vitamin D3) 25 25 mcg PO DAILY 07/06/23 06/17/25 History mcg (1,000 unit) capsule desonide 0.05 % topical ointment 1 applic topical DAILY 07/06/23 06/17/25 History famotidine 20 mg tablet (Pepcid) 20 mg PO DAILY 07/06/23 06/17/25 History krill 1,000 mg-omega-3 230 mg-dha 1 cap PO DAILY 07/06/23 06/17/25 History 60 rk-iuk-wpfmptadb-astaxan capsule (MegaRed [place]-3 Krill Oil) losartan 100 mg tablet 100 mg PO DAILY 07/06/23 06/17/25 History nystatin 100,000 unit/gram topical 1 applic topical BID 07/06/23 06/17/25 History powder (Nystop) psyllium husk 0.4 gram capsule 0.4 g PO DAILY 07/06/23 06/17/25 History (Metamucil) sildenafil 100 mg tablet 100 mg PO DAILY PRN sexual activity 07/06/23 06/17/25 History lidocaine 4 % topical patch 1 patch topical DAILY PRN pain 08/06/24 06/17/25 History tolnaftate 1 % topical solution 1 drp topical BID 08/06/24 06/17/25 History (Tolcylen) latanoprost 0.005 % eye drops 1 drp EACH EYE DAILY 11/05/24 06/17/25 History acetaminophen 650 mg 1,300 mg PO Q12H PRN pain 06/17/25 06/17/25 History tablet,extended release (8 Hour Pain Reliever) immune glob,gamm(IgG) 10 %-pro-IgA 10 g IV ONCE 06/17/25 History 0 to 50 mcg/mL intravenous solution (Privigen) Patient hx anesthesia problems: none Family hx anesthesia problems: none Results Review: All pre-operative results and documents have been reviewed as part of the pre-operative evaluation. [facility] Past Medical History Medical History (Updated 06/17/25 @ 09:35 by Sindy Nash MA) Colonoscopy planned Arthritis of lumbar spine High cholesterol History of colon polyps History of kidney stones Hypertension Surgical History Surgical History History of tonsillectomy History of surgical removal of lesion Family History Family History Father Diabetes mellitus Mother Hypotension Other Melanoma Social History Social History (Updated 06/17/25 @ 09:28 by Sindy Nash MA) Smoking packs per day: 1 Smoking cigarettes per day: 20.0 Years smoked: 30 Smoking pack-years: 30.00 Smoking status: Former smoker Tobacco type: cigarettes Smoking end date: 11/07/89 Alcohol intake: current Drinks per week: 2 Substance use: never Substance use type: does not use Do You Feel Safe in your Home?: Yes Lack of Transportation: No Lack of Food: Never True Current Housing: I Have Housing Concerned About Future Housing: No Difficulty Paying Gas/Electric Bills: No Difficulty Paying for Meds: No Currently Unemployed: No Education: Bachelor's Degree Difficulty w/ Childcare or Family Care: No Living arrangements: with family Additional living arrangements comments: Occupation/Education: retired Spiritual care concerns: No Anes - Eval Final PreProcedure Day of Procedure 07/02/25 08:53 Patient weight: obese Heart: regular rate and rhythm Lungs: clear to auscultation Airway: Mallampati scale class II Neurological: alert and oriented Last oral intake: >/= 8 hours ASA classification: III Emergent: no Anesthetic plan: proceed Anesthesia type and monitoring: general ETT and standard monitoring Results Review: All pre-operative results and documents have been reviewed as part of the pre-operative evaluation. Informed Consent: The patient's anesthetic plan and its attendant risks and benefits were discussed with the patient/family/POA. Questions were solicited and answers provided to the satisfaction of the patient/family/POA.
--- NOTE | 2025-07-02 09:05 | WPDHPUPDATE1 ---
History and Physical Update Update Date/Time: 07/02/25 09:05 History and Physical has been reviewed, including an updated exam of the patient. There are NO changes in the patient's condition. Risks, benefits, and alternatives have been discussed and questions answered. Patient agrees to proceed with procedure.
--- NOTE | 2025-07-02 09:06 | P.OP_ITS ---
Procedure Note - Detailed Date of Procedure 07/02/25 Pre-op Diagnosis vertebrogenic low back pain, chronic pain Post-op Diagnosis Same Procedure Performed Percutaneous transpedicular intraosseous basivertebral nerve thermal radiofrequency ablation (Intracept procedure) at L1, L2, L3 under fluoroscopic guidance. Surgeon Art Garcia MD Upper Trimmer None. Anesthesia General (GETA] in the [prone] position with infiltration of local anesthetic. 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 They are significantly limited in their daily and/or work-related activities as a result, including sitting, standing, lifting/carrying and sleeping, with failure to respond to and/or tolerate extensive efforts at more conservative management (i.e. oral and topical analgesics including NSAIDs, acetaminophen and opioids, Physical Therapy and modalities, time/rest, interventional procedures/corticosteroid injections) for greater than 6 months prior to today's procedure establishing medical necessity for this well-studied and FDA-approved pain-relieving procedure. INFORMED CONSENT: Procedure was discussed in detail with the patient at a previous visit and at the time of surgery. During this discussion, the risks, benefits, and alternatives to the procedure, including doing nothing, were thoroughly described to the patient, who expressed explicit understanding and consent to proceed. Specific risks discussed with the patient included, but were not limited to the risk of serious local or systemic infection, skin burn/scarring, major or minor bleeding/bruising, allergic reaction to medications or materials, inadvertent lung or other organ injury, new or worsening spinal fracture, inadvertent thermal or mechanical nerve or spinal cord injury resulting in increased pain, weakness, numbness or loss of bowel or bladder control, the need for repeat or additional surgery, inadvertent dural puncture resulting in acute or chronic CSF leak and post-dural puncture headache, failure to treat pain, and risks associated with general anesthesia in the prone position including eye, dental, joint, nerve, spine or soft tissue injury/pain related to positioning, heart attack, respiratory failure, aspiration, pneumonia, DVT/PE or thrombosis, hemorrhagic or ischemic stroke, hypoxia, hypo- or hypertension, seizure, coma and . Patient understands these risks and agrees that the opportunity for benefit outweighs the potential risk of harm. Procedure specific informed consent form was read, reviewed, signed by the patient and surgeon and witnessed in the pre-operative area. All pertinent questions were asked and answered to the patient's satisfaction. Surgical site was pre-treated with chlorhexidine wipes. All materials required for the procedure were available and site and side of procedure was marked prior to procedure start. Appropriate timeout was conducted by all participants in the OR (patient's ID, procedure to be performed, procedure site and side, allergies and appropriate medications including pre-operative antibiotics were verified) prior to incision. PROCEDURE IN DETAIL: After full informed consent and adequate IV access was obtained without difficulty; the patient was escorted to the procedural suite. ASA standard monitors were applied and utilized throughout the case. Prophylactic antibiotics were administered prior to procedure start. GETA was initiated without difficulty or event. Eyes were protected. Patient was converted to the prone position in optimal flexion using pillows under the abdomen, hips and ankles. Pressure points were padded, cervical spine and joints were placed in neutral position. Eyes, breasts and genitals were evaluated and protected as appropriate. The thoracolumbar spine to the sacrum was prepared in the usual manner using alcohol scrub followed by broad application of ChloraPrep, and allowed to dry completely for over 3 minutes. Surgical site and C-arm was sterilely draped in the typical fashion. Aseptic technique and strict fluoroscopic guidance was utilized throughout. Fluoroscope was moved into position to visualize the vertebral bodies of interest in the AP and lateral plane, obtaining true linear projections of the endplates at each level, and was rotated in the ipsilateral oblique view approximately 35 degrees from true AP to visualize the vertebrae with respective ipsilateral facet joints visualized bisecting the superior disk space at the midpoint of the vertebral body. The superolateral border of the pedicle of each level treated was identified. After adequate general anesthesia was confirmed, the skin entry point was located and infiltrated with an adequate amount of a 1:1 admixture of 0.5% preservative free bupivacaine and 2.0% preservative-free l idocaine using a 27 gauge 1.5-inch hypodermic needle after negative aspiration for blood or bodily fluid. Appropriate introducer cannula trajectory was identified in the AP, oblique and lateral views, and local anesthesia was extended to periosteum in a similar fashion at each level treated using a 3.5 inch, 22-gauge Quincke spinal needle. A stab skin decision was made with a #11 scalpel blade and an 8-gauge introducer cannula with beveled tip was then introduced through the skin, subcutaneous tissue and paraspinal muscle until contact was made with the bony surface of the pedicle at the target level. Appropriate position was confirmed in both the AP and lateral views. Using a 24- ounce surgical mallet, the trocar was advanced through the left pedicle to the posterior aspect of the vertebral body using a combination of AP and lateral views to ensure appropriate travel through the pedicle without breach of its medial wall or entry into the epidural/neuroforaminal space. Once the trocar had entered the posterior aspect of the L3 vertebral body, the trocar was removed from the cannula and the curved cannula assembly was inserted followed by replacement of the original straight stylette with the Nitinol J ? stylette without difficulty. The wingnut on the device was rotated counterclockwise to its endpoint permitting excursion of the J ? stylette. The curved cannula assembly was then advanced under intermittent fluoroscopic guidance, using the surgical mallet, in 1 to 2 mm increments with observed travel anteriorly and medially through the vertebral body in both the AP and lateral views. When necessary, the J-stylette was intermittently removed and replaced with the straight stylette during advancement to reach the basivertebral nerve target near the center point of the vertebral body. Target was reached when the tip of the stylette was noted to be a minimum of 1 cm anterior to the posterior wall and approximately 30 to 50% of the posterior to anterior diameter of the tar geted vertebral body and at the midpoint of the distance between the superior and inferior endplates, with tip of the stylette crossing midline as represented by the spinous process in the carefully aligned AP projection. J-stylette was then removed and the bipolar radiofrequency probe was connected to the generator and inserted into the introducer cannula until the proximal and distal electrodes straddled the midpoint of the vertebral body. The wingnut was then rotated clockwise to retract the PEEK sleeve and expose the proximal electrode on the radiofrequency probe. The basivertebral nerve was then ablated through activation of the probe and generator. At each level treated, ablation was performed at 85 degrees centigrade for 7 minutes using [facility]'s RFG standard intraosseous ablation algorithm while simultaneously monitoring for any sign of motor or sensory nerve stimulation. While ablative lesioning was progressing to completion at the initial level, the fluoroscope was adjusted to successively visualize the target of entry at the superolateral aspect of the pedicle at each additional level treated, (L1, L2), with each vertebral body subsequently and sequentially accessed and target nerve ablated in a similar manner modified only to accommodate for specific level, location and anatomical variation, alternating the site and side of entry to facilitate cannula placement. This was achieved in all cases without difficulty. Location of each entry point, final cannula and probe position was documented by fluoroscopy in the AP and lateral views with respective images recorded in the patient's chart. In all cases, once intraosseous access was obtained, needle tip remained intraosseous without violation of the pedicular wall, vertebral wall, neuroforamen and/or spinal canal. Once all ablations were complete, instruments were removed from the vertebral bodies without difficulty under direct visualization and fluoroscopic guidance. Pressure was held at each entry site until hemostasis was confirmed. Skin was cleaned with alcohol -soaked gauze and dried with a sterile towel. Surgical wounds were then closed with mastisol and Steri-Strips placed in a crisscrossing fashion and covered with a sterile Telfa and Tegaderm dressing. The patient was returned to the supine position and anesthesia was reversed without difficulty or event. The patient tolerated the procedure well with no evidence of complication. Patient was transported to the recovery room where they were monitored for an appropriate period of time prior to discharge. During this time, the patient demonstrated no evidence of new neurologic symptom or injury, uncontrolled pain, postsurgical or post anesthetic complication. The patient was eventually discharged with both written and verbal instructions for appropriate wound care and activity restriction and with instructions to contact the office or report directly to the emergency department if no immediate response or if after hours with any signs of urgent or emergent complication including but not limited to excessive discharge or bleeding, new focal or diffuse neurologic weakness, numbness or other sensory change in the upper or lower extremities, severe headaches, intractable nausea/vomiting, fevers, chills, night sweats, increasing pain or loss of bowel or bladder control. Patient will otherwise follow-up in person at the clinic in 7 to 10 days for wound check and reevaluation. COMPLICATIONS: None. COMMENTS: None. IV FLUIDS: On Chart. EBL: 10 ml. DRAINS: None. PACKING: None. SPECIMEN: None. Pathology None sent Complications No immediate complications Condition Stable Disposition PACU [facility] Billing Surgery - Charge Forward: Surgery Billing
--- NOTE | 2025-07-02 09:06 | WPDHPUPDATE1 ---
History and Physical Update Update Date/Time: 07/02/25 09:06 History and Physical has been reviewed, including an updated exam of the patient. There are NO changes in the patient's condition. Risks, benefits, and alternatives have been discussed and questions answered. Patient agrees to proceed with procedure.
[2025-07-02] MEDS: LACTATED RINGERS 1,000 ML 30 ML IV CONT ×2 (09:20→11:28)
[2025-07-02] MEDS: ceFAZolin 2 GM in SODIUM CHLORIDE 0.9% IV 50 ML 100 ML IVPB (10:00)
[2025-07-02] MEDS: LIDOCAINE 1% PF INJ 5 ML VIAL INFILTRATE (10:34)
[2025-07-02] MEDS: BUPIVACAINE/EPINEPHRINE 0.5% 50 ML VIAL INFILTRATE (10:34)
== END 2025-07-02 12:56 | disposition home or self-care (01) ==
PROVIDERS: Visit Provider Anesthesiology Pain Medicine
PROC: (CPT 64628; principal; 2025-07-02 10:30)
DX: M54.51 Vertebrogenic low back pain (principal); M47.816 Spondylosis without myelopathy or radiculopathy, lumbar region; I10 Essential (primary) hypertension; E78.5 Hyperlipidemia, unspecified; M17.12 Unilateral primary osteoarthritis, left knee; E66.9 Obesity, unspecified; Z68.36 Body mass index [BMI] 36.0-36.9, adult; Z79.82 Long term (current) use of aspirin; Z98.890 Other specified postprocedural states; Z87.891 Personal history of nicotine dependence; Z87.442 Personal history of urinary calculi; Z86.0100 Personal history of colon polyps, unspecified; Z80.8 Family history of malignant neoplasm of other organs or systems
CPT/HCPCS: 64628; 64629; 99199; J0690; C1889; J0330; J1100; J2003; J2405; J2704; J3010; J7120

== ENCOUNTER 2025-09-06 08:17 | Outpatient (CLI) | payer MEDICARE, SELFPAY ==
--- OUTSIDE RECORDS SUMMARY | 2008-05-24 03:59 | XMS_ITS | Continuity of Care Document ---
Author Organization [facility] [place] [address] [place] [address] [address] [place] [address] Phone Care Team Providers [facility] Cna Name Role Phone Lutz OD, Kenton Unavailable Unavailable Procedures Procedure Date Eye Exam & Treatment TF Plastic Sphcyl [place] To +/-4d .12-2d Anti-reflective Coating Tax - Medical Eye Exam, New Patient Refraction Advance Directives Directive Yes / No Effective Date File Name No Information Encounters Encounter Description Practice Location Reason(s) For Visit Diagnoses Date Provider Providers Copied on Encounter [facility], [address] [place] [address] [address], [place], [place], [id number], [place] tel:[phone] [facility] No Information 8200 8 Lutz OD Kenton. [address] [facility] [address], [address], [place], [address], [place]. tel:[phone] [facility], [address] [place] [address] [address], [place], [place], [id number], [place] tel:[phone] [facility] No Information 5200 7 [facility] . [address] [facility], [facility] [address], [place], [place], [id number], [place]. tel:[phone] Referring Provider: Kenton Lutz OD A, [address], [place], [address]. tel:[phone] sulting Provider: Vidhi Jefferson, [address] [place], [address]. tel:[phone] [facility], [address], [place], [place], [id number], [place] tel:[phone] [facility] No Information 4-200 7 Lutz OD Kenton. [address], [place], [address], [place]. tel:[phone] Family History Family Member Type Diagnosis Age At Onset No Information Payers Payer name Insurance type Covered republican ID Authorcarlosa tiyamini(s) [facility] Commercial [place] [id number] Social History Type Description Quantity Date Captured Comments Sex Male Smoking Status No Information Chief Complaint And Reason For Visit No Information Reason For Referral Reason For Referral No Information History Of Present Illness Encounter Date Complaint History Of Prese nt Illness No Information Functional Status Date Functional Assessmen t No Information Instructions Date Instruction Additional Infor mation No Information Assessments Type Assessment Date No Information Patient Care Teams Name Effective Dates (start - stop) Status Members No Information
--- OUTSIDE RECORDS SUMMARY | 2025-09-05 10:00 | XMS_ITS | Encounter Summary ---
Author Organization [facility] Address [address] [place] [address] Phone Care Team Providers Care Rn Research Name Role Phone Art Petty MD Primary Care Provider [phone] Elena Lopez MD Unavailable [phone] Reason for Visit * Reason Comments Hemorrhoids Encounter Details Date Type Department Care Team (Late st Contact Info) Description 09/05/2025 10:00 AM CDT Office Visit [facility] Medicine Surgery [address] [place] [address] Elena Lopez MD [address] [facility] [phone] [place] [address] Grade I hemorrhoids (Primary Dx) Social History Tobacco Use Types Packs/Day Years Used Date Smoking Tobacco: Former Cigarettes Q uit: 07/02/1981 Passive Smoke Exposure: Past Smokeless Tobacco: Never Alcohol Use Standard Drinks/Week [...] on file 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 Gender Identity Not on file Sexual Orientation Not on file documented as of this encounter Last Filed Vital Signs Vital Sign Reading Time Taken Comments Blood Pressure 123/66 09/05/2025 9:38 AM CDT Pulse 91 09/05/2025 9:38 AM CDT Temperature 36.3 C (97.4 F) 09/05/2025 9:38 AM CDT Respiratory Rate 20 09/05/2025 9:38 AM CDT Oxygen Saturation 97% 09/05/2025 9:38 AM CDT Inhaled Oxygen Concentration - - Weight 107.7 kg (237 lb 6.4 oz) 09/05/2025 9:38 AM CDT Height - - Body Mass Index 37.18 06/12/2025 9:52 AM CDT documented in this encounter Progress Notes * Elena Lopez MD - 09/05/2025 10:00 AM CDT Colorectal Surgery Clinic Visit Chief Complaint: Antonio Meléndez is a 79 y.o. male with chief complaint of Hemorrhoids Referring physician: Referral, Self HPI: Mr. Meléndez is an 79-year-old gentleman who presents for follow up of internal hemorrhoids He has a long standing history of intermittent hemorrhoids with bleeding. He did have some sort of anorectal reconstruction procedure due to bleeding approximately a decade or 2 ago. Report was not available for review. When he was last seen, he endorsed prolonged toileting as well as straining. Hewas taking a fiber supplement but did not take in adequate water. He endorsed intermittent rectal bleeding with wiping. Since he was last seen, he has been optimizing his fluid intake. He continues on his fiber supplement. His toileting habits have significantly improved and he avoids any prolonged toileting or straining. He has only had 2 episodes of very minimal bleeding in the last month. Of note, his last colonoscopy was in May 2025 and performed by my partner Dr. Prakash. Past Medical History: Diagnosis Date Arthritis Awareness under anesthesia Cancer (HCC) melanoma, squamous, and basil Cataract Colon polyp 2013 GERD (gastroesophageal reflux disease) Glaucoma High blood pressure High cholesterol History of transfusion Joint pain Kidney stone Low back pain Low back pain Personal history of other diseases of the circulatory system History of hypertension - (Added by TW Conv) Personal history of other endocrine, nutritional and metabolic disease History of hypercholesterolemia - (Added by TW Conv) Past Surgical History: Procedure Laterality Date CATARACT EXTRACTION COLONOSCOPY 2013 HEMORRHOID SURGERY MENISCUS SURGERY MOHS SURGERY POLYPECTOMY [place] CYSTO W/URETEROSCOPY W/LITHOTRIPSY Cystoscopy With Ureteroscopy With Lithotripsy - (Added by TW Conv) TONSILLECTOMY HOME MEDICATIONS: acetaminophen ER (TYLENOL) 650 mg 8 hr tablet amLODIPine (NORVASC) 5 mg tablet aspirin 81 mg chewable tablet atorvastatin (LIPITOR) 20 mg tablet AZOPT 1 % ophthalmic suspension BUPivacaine HCl (MARCAINE) 0.5 % (5 mg/mL) injection carboxymethylcellulose (REFRESH TEARS) 0.5 % ophthalmic solution cholecalciferol (VITAMIN D-3) 25 mcg (1,000 unit) tablet desonide (DESOWEN) 0.05 % ointment dorzolamide (TRUSOPT) 2 % ophthalmic solution famotidine (PEPCID) 40 mg tablet ibuprofen (ADVIL,MOTRIN) 200 mg tab/cap latanoprost (XALATAN) 0.005 % ophthalmic solution lidocaine (ASPERCREME) 4 % adhesive patch,medicated losartan (COZAAR) 100 mg tablet LUMIGAN 0.01 % ophthalmic drops menthol 4 % gel miconazole 2 % powder mometasone (ELOCON) 0.1 % cream Nystop powder omega 3-kwy-aug-fish oil 300-1,000 mg capsule psyllium 0.4 gram capsule sodium, potassium & mag sulfates (Suprep Bowel Prep Kit) 17.5-3.13-1.6 gram recon soln tobramycin-dexAMETHasone (TOBRADEX) ophthalmic solution tolnaftate (TINACTIN) 1 % external solution triamcinolone (Kenalog) 10 mg/mL injection tadalafiL (CIALIS) 20 mg tablet sodium, potassium & mag sulfates (SUPREP BOWEL KIT) 17.5-3.13-1.6 gram recon soln Allergies Allergen Reactions Hydrocodone-Acetaminophen Other (See comments) and Nausea & Vomiting Drowsy Oxycodone Nausea & Vomiting Social History Tobacco Use Smoking status: Former Current packs/day: 0.00 Types: Cigarettes Quit date: 07/02/1981 Years since quittin.2 Passive exposure: Past Smokeless tobacco: Never Substance and Sexual Activity Drug use: Never Sexual activity: Yes Partners: Female Alcohol Use: Not At Risk (06/06/2025) AUDIT-C Frequency of Alcohol Consumption: 2-4 times a month Average Number of Drinks: 1 or 2 Frequency of Binge Drinking: Never Family History Problem Relation Age of Onset Heart disease Mother Mental illness Mother Arthritis Mother Heart disease Father Cancer Father Diabetes Father Review of Systems: As noted in HPI Constitutional: No fever, no chills, no unintended weight loss Neurological: No headaches, no dizziness, no vision changes Cardiovascular: No chest pain, no palpitations Respiratory: No shortness of breath, no coughing Psychiatric: No mood changes, no depression Lymphatic: No swollen lymph nodes Hematology: No easy bruising/bleeding Integument: No itching, no non-healing sores Oral: No mouth sores Musculoskeletal: No joint stiffness Gastrointestinal: As above Genitourinary: No hematuria or dysurea Vitals: Vitals BP 123/66 (BP Location: Left arm, Patient Position: Sitting) Pulse 91 Temp 36.3 ??C (97.4 ??F) (Temporal) Resp 20 Wt 107.7 kg (237 lb 6.4 oz) SpO2 97% BMI 37.18 kg/m?? Physical exam: General: Well developed, well nourished Orientation/Psych: Alert and oriented x 3 HEENT: Normocephalic/atraumatic, anicteric Cardiac: Regular rate and rhythm Pulmonary: Non-labored breathing, no audible wheezing Abdomen: Soft nontender, nondistended, no masses Integumentary: No rashes, skin warm and dry Neurologic: Non-focal motor function Musculoskeletal: No gross bony deformities Anorectal: External examination with small external skin tags but no evidence of fissure, fistula, prolapsed internal hemorrhoids, other lesions. JAY JAY with normal tone and motion with bulky internal hemorrhoids but no evidence of mass, stricture, abscess. Anoscopy : After JAY JAY, the lubricated anoscope was placed in the anal canal and circumferential visualization performed without evidence of proctitis, stricture, or mass lesions. The internal hemorrhoids were non-friable and mildly engorged, worse in the left lateral position. The scope was removed.This was tolerated well with no blood loss. Labs: Below is the patient's most recent value for Albumin, ALT, AST, BUN, Calcium, Chloride, Cholesterol, CO2, Creatinine, GFR, Glucose, HDL, Hematocrit, Hemoglobin, Hemoglobin A1C, LDL, Magnesium, Phosphorus, Platelets, Potassium, PSA, Sodium, Triglycerides, and WBC. Lab Results Component Value Date ALBUMIN 4.2 06/12/2025 ALT 16 06/12/2025 AST 23 06/12/2025 BUNSER 21 06/12/2025 CALCIUM 10.6 (H) 06/12/2025 CHLORIDE 111 (H) 06/12/2025 CHOL 142 06/12/2025 CO2 27 06/12/2025 CREATININE 1.39 (H) 06/12/2025 GLUCOSE 86 06/12/2025 HDL 41 06/12/2025 HCT 41.6 06/12/2025 HGB 13.6 06/12/2025 LDL 90 04/23/2016 LABPLAT 150 06/12/2025 K 4.3 08/03/2021 PSA 0.84 06/12/2025 SODIUM 145 06/12/2025 TRIG 87 06/12/2025 WBC 5.26 06/12/2025 Note: for a comprehensive list of the patient's lab results, access the Results Review activity. Colonoscopy: I have personally reviewed the colonoscopy report from 06/06/2025 which demonstrates 3 mm polyp in the descending colon, 10 mm polyp in the transverse colon. Recommended repeat colonoscopy in 5 years.. Pathology: Tubular adenoma x2 Assessment: Antonio Meléndez is a 79 y.o. male with grade 1 internal hemorrhoids. Plan: He has responded very nicely to conservative management of his internal hemorrhoids. I do not recommend any procedures at this time. He knows to continue his bowel regimen and improved toileting habits and we will follow up with me on an as-needed basis. All questions were answered to his satisfaction. Elena Lopez MD 09/05/2025 10:11 AM Audio Video Tech completed by using [employer]*Modal Fluency Direct speaking software, therefore, transcriptionvariances may occur. documented in this encounter Plan of Treatment Not on file documented as of this encounter Goals Goal Patient Goal Type Associated Problems Recent Progress Patient-Stated? Author CCM Chronic Pain Care Plan Chronic Care Management No change(02/08 9:06 AM CDT) No Ila Limon RN Note: Problem: Chronic Pain Goals: 1. Minimize further functional decline 2. Maximize quality of life 3. Control pain Strategies: - Activity/exercise program recommendation - Conservative stepwise pain medicine strategy with multi-disciplinary approach - Recommend healthy lifestyle strategies and compensatory methods as needed documented as of this encounter Visit Diagnoses Diagnosis Grade I hemorrhoids- Primary documented in this encounter Discontinued Medications Medication Sig Discontinue Reason Start Date End Da te sodium, potassium & mag sulfates (SUPREP BOWEL KIT) 17.5-3.13-1.6 gram recon solnIndications:Bowel Evacuation Drink 1 bottle at 6pm the night before procedure. Drink 2nd bottle 4 hours prior to leaving home. Duplicate order 04/28/2022 09/05/2025 documented as of this encounter Historical Medications * This list may reflect changes made after this encounter. latanoprost (XALATAN) 0.005 % ophthalmic solution INSTILL 1 DROP INTO BOTH EYES EVERY NIGHT AT BEDTIME 08/20/2025 added in this encounter Care Teams Rn Research Relationship Specialty Start Date End Date Art Petty MD [address] [place] [address] DR Maame MARQUEZ [address] [place] [id number] PCP - General 03/08/17 Elena Lopez MD [address] [facility] [phone] [place] [address] Surgeon General Surgery 07/30/25 documented as of this encounter
--- NOTE | ~2025-09-06 | MR_ITS ---
EXAMINATION: MR lumbar spine wo con DATE: 09/06/2025 09:05 INDICATION: Spinal stenosis, lumbar region. TECHNIQUE: Magnetic resonance imaging (MRI) of the lumbar spine was performed without intravenous contrast. Sequences included sagittal T2-weighted FSE, sagittal T2-weighted FS FSE, sagittal T1-weighted FSE, and axial T2-weighted FSE. COMPARISON: None FINDINGS: There is 25 degrees dextroscoliosis of thoracolumbar spine. There is a hemangioma in L2 vertebral body. There is mild chronic anterior wedging of T11 and T12 vertebral bodies. There is moderately decreased disc height at L1-L2 and L2-L3, mildly decreased disc height at L3-L4, and severely decreased disc height at L5-S1. The distal spinal cord signal intensity is normal. The conus medullaris is at L1-L2. There are cysts in the kidneys measuring up to 4.5 cm on the left. The following disc levels are specifically discussed: L1-L2: The disc is bulging. There is moderate bilateral facet joint osteoarthritis. There is mild left neural foraminal stenosis. There is mild central canal stenosis. L2-L3: The disc is bulging and has an annular fissure. There is moderate bilateral facet joint osteoarthritis. There is mild bilateral neural foraminal stenosis. There is mild central canal stenosis. L3-L4: The disc is bulging. There is moderate bilateral facet joint osteoarthritis. There is mild bilateral neural foraminal stenosis. There is mild central canal stenosis. L4-L5: The disc is bulging. There is severe bilateral facet joint osteoarthritis. There is mild bilateral neural foraminal stenosis. There is mild central canal stenosis. L5-S1: The disc is bulging and has an annular fissure. There is severe right and mild left facet joint osteoarthritis. There is moderate right and mild left neural foraminal stenosis. There is mild central canal stenosis. IMPRESSION: 1. Severe lumbar spondylosis. 2. Thoracolumbar dextroscoliosis. Reviewed, dictated and finalized at location E.
--- OUTSIDE RECORDS SUMMARY | 2025-09-06 08:34 | XMS_ITS | Encounter Summary ---
Author Organization [facility] Address [address] [place] [address] Care Team Providers Care Industrial Locomotive Operator Name Role Phone Art Petty MD Primary Care Provider [phone] Encounter Details Date Type Department Care Team (Late st Contact Info) Description 06/13/2018 Lab Requisition [facility] Care DermPath Lab [address] [facility], [place] [address] Pilar Cardona MD [address] [facility] 3 [place] [address] Social History Tobacco Use Types Packs/Day Years Used Date Smoking Tobacco: Former Smokeless Tobacco: Never Alcohol Use Standard Drinks/Week Comments Yes 0 (1 standard drink = 0.6 oz pur e alcohol) Sex and Gender Information Value Date Recorded Sex Assigned at Not on file 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 Gender Identity Not on file Sexual Orientation Not on file documented as of this encounter Plan of Treatment Not on file documented as of this encounter Procedures Procedure Name Priority Date/Time Associated Diagnosis Comments DERMATOPATH TECHNICAL REPORT Routine 06/12/2018 12:00 AM CDT documented in this encounter Results * DERMATOPATH TECHNICAL REPORT (06/12/2018 12:00 AM CDT) Case Report Dermatopathology Report Case: [id number] Authorizing Provider: Pilar Cardona MD Collected: 06/12/2018 12:00 AM Pathologist: Mayur Yo MD Received: 06/13/2018 06:25 AM Specimen: Skin, right parietal 12:30 PM CDT DERMATOPATHOLOGY LABORATORY Addendum 1 At the request of the diagnosing physician, the technical component for GMS and Mib was performed by [facility] Dermatopathology Laboratory. 12:30 PM CDT DERMATOPATHOLOGY LABORATORY Addendum electronically signed by Mayur Yo MD on 06/16/2018 at 1230 CDT Clinical History R/O SCC, non-healing. 12:30 PM CDT DERMATOPATHOLOGY LABORATORY Gross Description Specimen A: Received is one formalin filled container labeled with the patient's name and designated right parietal. The specimen consists of a shave biopsy measuring [id number]. Jar 0. [facility] Dermatopathology Laboratory performed the technical component only. 12:30 PM CDT DERMATOPATHOLOGY LABORATORY Embedded Images 12:30 PM CDT DERMATOPATHOLOGY LABORATORY DISCLAIMER An external and internal positive and negative controls are appropriate for the histochemical, immunohistochemical and immunofluorescence stain(s) in this case (if any), except where stated explicitly. The performance characteristics of the stain(s) cited in this report were developed and its performance characteristic determined by the Dermatopathology Laboratory at [facility]. These tests need not be, and therefore are not, approved by the [place] Food and Drug Administration. The tests are used for clinical purposes. 12:30 PM CDT DERMATOPATHOLOGY LABORATORY at 1733 CDT Pathology/Cytolog y TISSUE SPECIMEN FROM SKIN / Unknown 06/12/2018 06/13/2018 6:25 AM CDT us Pilar Cardona MD LAB - PATHOLOGY/CYTOLOGY OR DERABLES Edited Result - Final DERMATOPATHOLOGY LABORATORY [facility] - Department of Dermatology [address] [facility], 5th [place] [address], [facility] [phone] documented in this encounter Visit Diagnoses Not on filedocumented in this encounter Care Teams Industrial Locomotive Operator Relationship Specialty Start Date End Date Art Petty MD [address] Maame MARQUEZ [address] [place] [id number] PCP - General 01/21/15 documented as of this encounter
--- OUTSIDE RECORDS SUMMARY | 2025-09-06 08:34 | XMS_ITS | Encounter Summary ---
Author Organization [facility] Address [address] [facility] [place] [address] Care Team Providers Care System Trainer Name Role Phone Art Petty MD Primary Care Provider [phone] Encounter Details Date Type Department Care Team (Late st Contact Info) Description 01/01/[address] 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 Received: 01/01/2020 07:16 AM Pathologist: Tosha Stephen MD Specimens: A) - Skin, right cheek B) - Skin, left FA 0 12:13 PM [facility] DERMATOPATHOLOGY LABORATORY Final Diagnosis Specimen A. SKIN, right cheek: SQUAMOUS CELL CARCINOMA, WELL DIFFERENTIATED (C44.329) Specimen B. SKIN, left FA: HYPERPLASTIC (HYPERTROPHIC) ACTINIC KERATOSIS (L57.0) 0 12:13 PM [facility] DERMATOPATHOLOGY LABORATORY at 1213 LADLE REPAIRMAN Clinical History A: R/O BCC, SCC. Ill defined pink papule. B: R/O NMSC. [place] scaly papule. 0 12:13 PM [facility] DERMATOPATHOLOGY LABORATORY Gross Description Specimen A: Received is one formalin filled container labeled with the patient's name and designated right cheek. The specimen consists of a shave (2 pieces) measuring [id number] & [id number]. Jar 0. Specimen B: Received is one formalin filled container labeled with the patient's name and designated left FA. The specimen consists of a shave measuring [id number]. Jar 0. 0 12:13 PM [facility] DERMATOPATHOLOGY LABORATORY Microscopic Description Specimen A. SKIN, right cheek: Arising in the epidermis and extending into the dermis there are irregularly shaped aggregates of keratinocytes showing evidence of premature cornification. Specimen B. SKIN, left FA: There is hyperkeratosis alternating with parakeratosis. There is epidermal hyperplasia with disorderly maturation of keratinocytes with nuclear pleomorphism confined to the lower half of the epidermis. 0 12:13 PM [facility] DERMATOPATHOLOGY LABORATORY Disclaimer An external and internal positive and negative controls are appropriate for the histochemical, immunohistochemical and immunofluorescence stain(s) in this case (if any), except where stated explicitly. The performance characteristics of the stain(s) cited in this report were developed and its performance characteristic determined by the Dermatopathology Laboratory at [facility], directed by Dr. Soumya Yo. These tests need not be, and therefore are not, approved by the [place] Food and Drug Administration. The tests are used for clinical purposes. Billing Codes Specimen Charges Stain Charges 39334 16013 1 1 0 12:13 PM [facility] DERMATOPATHOLOGY LABORATORY Embedded Images 0 12:13 PM LADLE REPAIRMAN DERMATOPATHOLOGY LABORATORY Pathology/Cytology TISSUE SPECIMEN FROM SKIN / Unknown 12/31/2019 01/01/2020 7:16 AM LADLE REPAIRMAN Miscellaneous samples (specimen) TISSUE SPECIMEN FROM SKIN / Unknown 12/31/2019 01/01/2020 7:16 AM LADLE REPAIRMAN us Faith Presley MD LAB - PATHOLOGY/CYTOLOGY ORD ERABLES Final Result DERMATOPATHOLOGY LABORATORY [facility] - Department of Dermatology [address] [place] [address], 5th Floor Lab B [address] [phone] documented in this encounter Visit Diagnoses Not on filedocumented in this encounter Care Teams System Trainer Relationship Specialty Start Date End Date Art Petty MD [address] Maame [address]QUE[address] [place] [address] PCP - General 01/21/15 documented as of this encounter
--- OUTSIDE RECORDS SUMMARY | 2025-09-06 08:34 | XMS_ITS | Clinical Summary ---
Author Organization [facility] Address [address] [facility] [place] [address] Care Team Providers Care Vamp Liner Name Role Phone Art Petty MD Primary Care Provider [phone] Source Comments [facility],non-owned Affiliates and Associated Physician Practices is amultiple site organization consisting of ambulatory clinics and hospital sitesin [place], [place], [place] and [place]. This disclosure is being madepursuant to the Care Everywhere program and may not contain all information available regarding this patient. Last updated 18.[facility] Allergies Active Allergy Reactions Criticality Noted Date Comments Hydrocodone-Guaifenesin Other Low 02/04/2015 Doesn't like the feeling he gets from it. 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 Gender Identity Not on file Sexual Orientation Not on file Last Filed Vital Signs Vital Sign Reading Time Taken Comments Blood Pressure 132/73 05/05/2015 9:45 AM CDT Pulse 66 05/05/2015 9:45 AM CDT Temperature - - Respiratory Rate - - Oxygen Saturation 95% 05/05/2015 9:45 AM CDT Inhaled Oxygen Concentration - - Weight 113.4 kg (250 lb) 05/05/2015 7:28 AM CDT Height 171.5 cm (5' 7.5) 05/05/2015 7:28 AM CDT Body Mass Index 38.58 05/05/2015 7:28 AM CDT Plan of Treatment Health Maintenance Due Date Last Done Comments DTAP/TDAP/TD VACCINES (1 - Tdap) 1962 PNEUMOCOCCAL VACCINE 50+ (1 of 1 - PCV) 1993 ZOSTER VACCINE (1 of 2) 1993 Respiratory Syncytial Virus (RSV) Vaccine Pt: or over 60 yrs (1 - 1-dose 75+ series) 2018 DEPRESSION SCREENING 11/07/2024 COVID-19 VACCINE ( - 2023-2 5 season) 2025 INFLUENZA VACCINE (#1) 2025 HEPATITIS B VACCINE Aged Out No longe r eligible based on patient's age to complete this topic HIB VACCINE Aged Out No longer eligi ble based on patient's age to complete this topic HPV VACCINE Aged Out No longer eligi ble based on patient's age to complete this topic MENINGOCOCCAL (Group B) VACC INE SHARED DECISION-MAKING Aged Out No longer eligibl e based on patient's age to complete this topic MENINGOCOCCAL GROUPS A/C/Y/W VACCINE Aged Out No longer eligible b ased on patient's age to complete this topic Insurance MANAGED MEDICARE ADV Care Teams Vamp Liner Relationship Specialty Start Date End Date Art Petty MD [address] [facility] [address] Maame MARQUEZ [address] [place] [id number] [facility] - General 01/21/15
--- OUTSIDE RECORDS SUMMARY | 2025-09-06 08:35 | XMS_ITS | Clinical Summary ---
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 Gender Identity Not on file Sexual Orientation [...] Years (1 - 1-dose 75+ series) 2018 PHQ-2 (Physician Randolph) 11/07/2024 COVID-19 Vaccine ( season) 2025 08/11/2022, 02/07/2022, 09/02/2021, Additional history exists Influenza Adult (#1) 2025 06/24/2022, 06/22/2021, 07/06/2019, Additional history exists DTaP, Tdap and Td Vaccines (2 - Td or Tdap) 04/24/2028 04/24/2018 Hepatitis A Vaccines Aged Out No long er eligible based on patient's age to complete this topic Meningococcal B Vaccine Aged Out No l onger eligible based on patient's age to complete this topic Meningococcal Vaccine Aged Out No torito reji eligible based on patient's age to complete this topic RSV Immunizations Under 20 Months Aged Out No longer eligible based on patient's age to complete this topic Insurance AET[employer] MEDICARE Care Teams Support Staff Relationship Specialty Start Date End Date Art Petty MD [address] [place] [address] DR Maame MARQUEZ [address] [place] [id number] PCP - General INTERNAL MEDICINE 08/17/22
--- OUTSIDE RECORDS SUMMARY | 2025-09-06 08:35 | XMS_ITS | Encounter Summary ---
Author Organization [facility] Address [address] [place] [address] Care Team Providers Care Kitchen Runner Name Role Phone Art Petty MD Primary Care Provider [phone] Elena Lopez MD Unavailable [phone] Reason for Visit * Reason Onset Date Comments fyi 09/26/2023 Encounter Details Date Type Department Care Team (Late st Contact Info) Description 09/26/2023 Telephone [facility] [address] [facility] [address] [place], [place] [id number] Bennett Conroy MD PhD [address] 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 Author [facility] Chronic Pain Care Plan Chronic Care Management No change(02/08 9:06 AM CDT) No Ila Limon, VICKY Note: Problem: Chronic Pain Goals: 1. Minimize further functional decline 2. Maximize quality of life 3. Control pain Strategies: - Activity/exercise program recommendation - Conservative stepwise pain medicine strategy with multi-disciplinary approach - Recommend healthy lifestyle strategies and compensatory methods as needed documented as of this encounter Visit Diagnoses Not on filedocumented in this encounter Care Teams Kitchen Runner Relationship Specialty Start Date End Date Art Petty MD [address] [place] [address] DR Maame MARQUEZ [address] [place] [address] PCP - General 03/08/17 Elean Lopez MD [phone] [place] [address] Surgeon General Surgery 07/30/25 documented as of this encounter
--- OUTSIDE RECORDS SUMMARY | 2025-09-06 08:35 | XMS_ITS | Clinical Summary ---
Author Organization [facility] Address [address] [place] [address] Care Team Providers Care Incinerator Attendant Name Role Phone Art Petty MD Primary Care Provider [phone] Elena Lopez MD Unavailable [phone] Allergies Active Allergy Reactions Criticality Noted Date Comments Hydrocodone-Acetaminophen Other (See com ments),Nausea & Vomiting Low 10/10/2012 Drowsy Oxycodone Nausea & Vomiting Low 07/02/2025 Medications aspirin 81 mg chewable tablet USE DIRECTED. 2006 Active LUMIGAN 0.01 % ophthalmic drops INSTILL 1 DROP IN OU QPM UTD 6 2017 Active AZOPT 1 % ophthalmic suspension 6 2017 Active omega 9-xps-jag-fish oil 300-1,000 mg capsule 2007 Active cholecalciferol [...] menthol 4 % gel Apply topically Active tobramycin-dexAMETHaso ne (TOBRADEX) ophthalmic solution SHAKE [...] MOUTH DAILY 90 tablet 3 2024 Active acetaminophen ER (TYLENOL) 650 mg 8 hr tablet Take 2 tablets (1,300 mg total) by mouth 2024 Active BUPivacaine HCl (MARCAINE) 0.5 % (5 mg/mL) injection Take 20 mg by injection route. 2024 Active lidocaine (ASPERCREME) 4 % adhesive patch,medicated Apply topically 2023 Active psyllium 0.4 gram capsule Take 1 capsule (0.4 g total) by mouth 2022 Active tolnaftate (TINACTIN) 1 % external solution Apply topically 2023 Active triamcinolone (Kenalog) 10 mg/mL injection Take 20 mg by injection route. 2024 Active losartan (COZAAR) 100 mg tabletIndications:Prim kim hypertension TAKE 1 TABLET BY MOUTH DAILY 90 tablet 3 2024 Active latanoprost (XALATAN) 0.005 % ophthalmic solution INSTILL 1 DROP INTO BOTH EYES EVERY NIGHT AT BEDTIME 2024 Active sodium, potassium & mag sulfates (SUPREP BOWEL KIT) 17.5-3.13-1.6 gram recon solnIndications:Bowel Evacuation Drink 1 bottle at 6pm the night before procedure. Drink 2nd bottle 4 hours prior to leaving home. 354 mL 09/05 Discontinued( Duplicate order) losartan (COZAAR) 100 mg tabletIndications:Prim kim hypertension TAKE 1 TABLET BY MOUTH DAILY 90 tablet 3 08/28 Discontinued Active Problems Problem Noted Date Diagnosed Date Grade I hemorrhoids 09/05/2025 Preop exam for internal medicine 02/07/2025 Assessment [...] (04/27/2022): Added automatically from request for surgery [id number] Cough 07/29/2017 Vitamin D deficiency 05/04/2017 Knee pain 10/09/2012 Benign colonic polyp 10/05/2011 Hyperlipidemia 10/05/2011 Hypertension 10/05/2011 Osteoarthritis 10/05/2011 Osteoarthritis of knee 08/13/2011 Encounters Date Type Department Care Team Description 09/05/2025 10:00 AM CDT Office Visit [facility] Medicine Surgery [facility] [place] [address] Elena Lopez MD Grade I hemorrhoids (Primary Dx) 08/01/2025 10:15 AM CDT Office Visit [facility] Medicine Surgery [address] [place] [address] Elena Lopez MD Grade I hemorrhoids (Primary Dx) 06/24/2025 Telephone [facility] Medicine Surgery [address] [place] [address] Devora Davis Hector Patient issue/concern 06/19/[address] [phone] Art Petty MD Surgical Clearance (Dr. Garcia - [facility]) 06/13/2025 Telephone [facility] [address] [facility] Medical Office Building [address] [place] [phone] Elizabeth Armendariz RN 06/12/2025 11:20 AM CDT Lab [facility] at the [address] [phone] Benign prostatic hyperplasia with lower urinary tract symptoms, symptom details unspecified; Hypertension, essential; Vitamin D deficiency; Screening cholesterol level; Screening, anemia, deficiency, iron 06/12/2025 10:00 AM CDT Office Visit [address] [phone] Art Petty MD Hypertension, essential (Primary Dx); Benign prostatic hyperplasia with lower urinary tract symptoms, symptom details unspecified; History of kidney stones; Chronic bilateral low back pain with sciatica, sciatica laterality unspecified; Vitamin D deficiency; Other male erectile dysfunction; Adenomatous polyp of ascending colon; Screening, anemia, deficiency, iron; Screening cholesterol level 06/12/2025 Orders Only [facility] [address] [phone] Art Petty MD Routine general medical examination at a health care facility (Primary Dx) 06/06/2025 10:35 AM CDT Anesthesia Event [facility] Endoscopy at [address] [phone] Fabrice Cavanaugh MD Lyerla, Christina M., CRNA 06/06/2025 10:32 AM CDT - 06/06/2025 11:17 AM CDT Surgery [facility] Endoscopy at [address] [phone] Jerry Prakash MD COLON REMOVAL SNARE 06/06/2025 8:59 AM CDT - 06/06/2025 11:55 AM CDT Hospital Encounter [facility] Endoscopy at [address] [phone] Jerry Prakash MD History of colon polyps Discharge Disposition: Discharge to home or self care from Last 3 Months Immunizations Immunization Administration Dates Next Due COVID-19 mRNA (Sion Power) 0.3 m L (30 mcg) vaccine (12 years and up) 09/07/2023 Influenza, Quad, Adjuvantate d, Intramuscular 07/06/2019 Influenza, Quadrivalent, Hig h Dose, Preservative Free, Intrr 06/23/2022,06/22/2021,07/13/2020 Influenza, Trivalent, Adjuva nted, Intramuscular 07/06/2019 Influenza, Trivalent, High D ose, Split, Preservative Free, Intramuscular 06/29/2023,06/22/2021,07/05/2018,07/12,07/21/2016,07/15/2015,07/29/2014 Influenza, Trivalent, Preser vative Free, Intramuscular 07/20/2012 Influenza, Unspecified 06/29/2024,06/24/2022, Moderna SARS-CoV-2 Monovalen t Vaccination (12+ YRS) 09/02/2021,01/20/2021,12/19/2020,12/18 Moderna Sars-cov-2 Bivalent Vaccine 50 Mcg/0.5 mL (12+ YRS)-Blue/Morales 08/07/2022 Pneumococcal Conjugate Pcv20 06/09/2023 Pneumococcal Polysaccharide PPV23 04/07/2015 Tdap 04/24/2018 ZOSTER LIVE 10/07/2011 ZOSTER Recombinant 10/06/2023,07/20/2023 Surgical History Surgery Date Site/Laterality Comments SD CYSTO W/URETEROSCOPY W/LITHOTRIPSY Cystoscopy With Ureteroscopy With [...] Passive Smoke Exposure: Past Smokeless Tobacco: Never Tobacco Cessation:Counseling Given: Not [...] on file 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 [...] MD LAB BLOOD ORDERABLES Final R esult [facility] [place] [address] * (ABNORMAL) Differential, auto (06/12/2025 11:44 AM CDT) Neutrophil abs 3.13 1.50 - 6.50 K/cumm Imm gran abs 0.04 0.00 - 0.10 K/cumm [facility] Lymphocyte abs 1.20 0.80 - 3.30 K/cumm [facility] Monocyte abs 0.83(H) 0.20 - 0.80 K/cumm [facility] Eosinophil abs 0.03 0.00 - 0.50 K/cumm [facility] Basophil abs 0.03 0.00 - 0.10 K/cumm [facility] Neutrophil pct 59.4 % [facility] Comment: Interpretive Data Percent cell count reference ranges are not reported, since discordance with absolute values may lead to misinterpretation of CBC data. Current Interpretive Data was last revised on 2018. Imm gran pct 0.8 % [facility] Comment: Interpretive Data Percent cell count reference ranges are not reported, since discordance with absolute values may lead to misinterpretation of CBC data. Current Interpretive Data was last revised on 2018. Lymphocyte pct 22.8 % [facility] Comment: Interpretive Data Percent cell count reference ranges are not reported, since discordance with absolute values may lead to misinterpretation of CBC data. Current Interpretive Data was last revised on 2018. Monocyte pct 15.8 % [facility] Comment: Interpretive Data Percent cell count reference ranges are not reported, since discordance with absolute values may lead to misinterpretation of CBC data. Current Interpretive Data was last revised on 2018. Eosinophil pct 0.6 % [facility] Comment: Interpretive Data Percent cell count reference ranges are not reported, since discordance with absolute values may lead to misinterpretation of CBC data. Current Interpretive Data was last revised on 2018. Basophil pct 0.6 % [facility] Comment: Interpretive Data Percent cell count reference ranges are not reported, since discordance with absolute values may lead to misinterpretation of CBC data. Current Interpretive Data was last revised on 2018. Blood 06/12/2025 11:4 4 AM CDT 06/12/2025 1:26 PM CDT Art Petty MD LAB BLOOD ORDERABLES Final R esult Performing Organization Address [facility] Co de Phone Number [facility] [place] [address] * PSA screen (06/12/2025 11:44 AM CDT) [...] Petty MD LAB BLOOD ORDERABLES Final R [facility] Performing Organization Address [facility] de Phone Number [facility] [address] * Urinalysis reflex to microscopic (06/12/2025 11:44 AM CDT) Color, ur Yellow Yellow Clarity, ur Clear Clear [facility] Specific gravity, ur 1.023 1.003 - 1.030 [facility] pH, urine 5.5 [facility] Comment: Interpretive Data U rine pH is affected by diet, medications, systemic acid-base disturbances, and renal tubular function. pH may affect urinary stone formation. For example, urine pH below 6.0 may help reduce the tendency for calcium phosphate stones and pH greater than 6.0 may reduce the tendency for uric acid stone formation. Source: [employer] Current Interpretive Data was last revised on 2017 Protein, ur ql Negative Negative [facility] Glucose, ur ql Negative Negative [facility] Ketones, ur Negative Negative [facility] Bilirubin, ur Negative Negative [facility] Blood, ur Negative Negative [facility] Urobilinogen, ur <2.0 <2.0 mg/dL [facility] Nitrite, ur Negative Negative [facility] Leukocyte esterase, ur Negative Negative [facility] UA reflex comment Reflex conditions for microscopic UA not met. [facility] Urine 06/12/2025 11:4 4 AM CDT 06/12/2025 1:25 PM CDT us Art Petty MD LAB URINE ORDERABLES Final R esult [facility] Department [place] [address] * (ABNORMAL) CBC with auto differential (06/12/2025 11:44 AM CDT) WBC 5.26 3.80 - 9.90 K/cumm Hgb 13.6 13.0 - 17.5 g/dL [facility] Hct 41.6 38.9 - 50.3 % [facility] Plt 150 150 - 400 K/cumm [facility] MPV 11.4 9.1 - 12.3 fL [facility] RBC 4.21(L) 4.30 - 5.80 M/cumm [facility] MCV 98.8(H) 81.3 - 96.4 fL [facility] MCH 32.3 27.1 - 33.3 pg [facility] MCHC 32.7 32.3 - 35.7 g/dL [facility] RDW CV 13.7 11.1 - 14.9 % [facility] RDW SD 49.9(H) 35.7 - 48.1 fL [facility] NRBC abs 0.00 0.00 - 0.01 K/cumm [facility] Blood 06/12/2025 11:4 4 AM CDT 06/12/2025 1:26 PM CDT us Art Petty MD LAB BLOOD ORDERABLES Final R esult [facility] [place] [address] * Vitamin D 25 hydroxy (06/12/2025 11:44 AM CDT) Vitamin D 25-OH 35 30 - 80 ng/mL Blood 06/12/2025 11:4 4 AM CDT 06/12/2025 1:26 PM CDT Art Petty MD LAB BLOOD ORDERABLES Final R esult Performing Organization Address [facility] Co de Phone Number [facility] [place] [address] * Lipid panel (06/12/2025 11:44 AM CDT) [...] revised on 2018. Triglycerides 87 <=149 mg/dL [facility] Comment: Interpretive Data Ages < or = [...] revised on 2018. HDL 41 >=40 mg/dL [facility] Comment: Interpretive Data Ages < or = [...] on 2018. LDL, calculated 84 <=129 mg/dL [facility] Comment: Interpretive Data Ages < or = [...] 3. Jaquan Merchant et al. TAD Cardiol. 2019March 07;5(5):540-548. doi: 10.1001/jamacardio.2020.0013 Current Interpretive Data was last revised on 2024. Non-HDL Cholesterol 101 mg/dL [facility] Comment: Interpretive Data Ages < or = [...] last revised on 2018. Chol/HDL ratio 3 [facility] Blood 06/12/2025 11:4 4 AM CDT 06/12/2025 1:26 PM CDT Art Petty MD LAB BLOOD ORDERABLES Final R esult [facility] [address] [facility] Department [place] [address] * (ABNORMAL) Comprehensive metabolic panel (06/12/2025 11:44 AM CDT) Sodium 145 135 - 145 mmol/L Potassium, pl 5.3(H) 3.3 - 4.9 mmol/L [facility] Chloride 111(H) 97 - 110 mmol/L [facility] CO2 27 22 - 32 mmol/L [facility] Anion gap 7 2 - 15 mmol/L [facility] BUN 21 6 - 25 mg/dL [facility] Creatinine 1.39(H) 0.80 - 1.30 mg/dL [facility] Glucose 86 70 - 199 mg/dL [facility] Comment: Interpretive Data Fasting glucose >/= 126 [...] classification and Diagnosis of Diabetes Diabetes Care 2021; 46: S19-S40. Current interpretive data was last revised 2022. Calcium 10.6(H) 8.5 - 10.3 mg/dL [facility] Bilirubin, total 0.7 0.1 - 1.2 mg/dL [facility] Protein, pl 7.5 6.5 - 8.5 g/dL [facility] Albumin 4.2 3.5 - 5.0 g/dL [facility] Alk phos 59 40 - 130 Units/L [facility] ALT 16 7 - 55 Units/L [facility] AST 23 10 - 50 Units/L [facility] Blood 06/12/2025 11:4 4 AM CDT 06/12/2025 1:26 PM CDT Art Petty MD LAB BLOOD ORDERABLES Final R esult [facility] Department [place] [address] * Surgical pathology (06/06/2025 11:18 AM CDT) Tissue (Polyp(s), colon/colorectal, esophageal, gastric) 06/06/2025 11:18 AM CDT Tissue specimen (specimen) (Polyp(s), colon/colorectal, esophageal, gastric) 06/06/2025 11:22 AM CDT Narrative [facility]Y [facility] - 06/09/2025 4:41 PM CDT EPIC results best viewed via link to PDF [facility] [place] [address] Note to Patients: This report may contain [...] REPORT FINAL Patient Name: DORENE MELÉNDEZ Gender: M : 1945 (Age: 79) Address: [address] [place] [phone] Hospital #: [id number] Taken:06/06/2025 Received:06/06/2025 Reported: 06/09/2025 Patient Type: [facility] Service: Surgery Location: Physician(s): Jerry Prakash M.D. Art Petty M.D. Diagnosis: A. Large intestine, descending colon, polyp, biopsy - Tubular adenoma B. Large intestine, transverse colon, polyp, biopsy - Tubular adenoma udch/06/07/2025 12:51 By this signature, I attest that [...] Surgical Pathology and Flow Cytometry Departments at [facility] as part of an ongoing quality analyst program and in compliance with federally mandated [...] Surgical Pathology and Flow Cytometry Departments of [facility]. It has not been cleared or approved by the U. S. Food and Drug Administration. IMAGES AND SCANNED DOCUMENTS, IF INCLUDED, ONLY VIEWABLE IN PDF VERSION OF REPORT us Jerry Prakash MD LAB PATHOLOGY ORDERABLES Fin al Result PATHOLOGY [facility] 3rd Floor [place], [place] [phone] * Colonoscopy (06/06/2025 10:29 AM CDT) Anatomical Region Laterality Modality Other Narrative Procedure Note Jerry Prakash MD - 06/06/2025 10:29 AM CDT [facility] Patient Name: Dorene Meléndez Procedure Date: 06/06/2025 10:29 AM Date of : 1945 Admit Type: Outpatient Age: 79 Gender: Male Attending MD: Jerry Prakash M.D., Room: [facility] ENDOSCOPY ROOM 02 Note Status: Finalized [...] The scope was passed under direct vision.The [id number] was introduced through the anusand advanced to the the cecum, identified byappendiceal orifice and ileocecal valve. The colonoscopy was performed with ease. The patient tolerated the procedure well. The quality of the bowelpreparation was excellent. The quality of the bowel preparation was evaluated using the BBPS ([place] BowelPreparation Scale) with scores of: Right Colon [...] On: 06/06/2025 10:29 AM Recognized by the [employer] for promoting quality in endoscopy Jerry Prakash MD ENDOSCOPY PROCEDURES Final R esult from Last 3 Months Insurance [employer] CHOICE MEDICARE PPO [employer] CHOICE MEDICARE PPO [facility] MEDICARE [facility] MEDICARE Address: [address] [address] [place] [address] [facility] MEDICARE [employer] CHOICE MEDICARE PPO Advance Directives For more information, please contact: [phone] * Full Code (Latest Code Status on File) Date Activated Date Inactivated Comments 06/06/2025 9:29 AM 06/06/2025 3:55 PM * Full Code Date Activated Date Inactivated Comments 06/03/2022 7:04 AM 06/03/2022 1:30 PM * Full Code Date Activated Date Inactivated Comments 07/02/2019 9:55 AM 07/02/2019 4:34 PM Care Teams Incinerator Attendant Relationship Specialty Start Date End Date Art Petty MD [address] Maame MARQUEZ [address] [place] [address] PCP - General 03/08/17 Elena Lopez MD [phone] [place] [address] Surgeon General Surgery 07/30/25
== END 2025-09-06 08:18 | disposition home or self-care (01) ==
PROVIDERS: Visit Provider Anesthesiology Pain Medicine
DX: M47.816 Spondylosis without myelopathy or radiculopathy, lumbar region (principal); M41.85 Other forms of scoliosis, thoracolumbar region; M48.061 Spinal stenosis, lumbar region without neurogenic claudication
CPT/HCPCS: 72148